=== PATIENT | male | born 1985 | race Caucasian/White ===

== ENCOUNTER 2019-12-08 15:14 | Outpatient (REF) | payer MEDICAID, SELFPAY ==
[2019-12-08 15:48] LABS: Prothrombin Time 24.2 SEC (10.8-13.0)
== END 2019-12-08 15:15 | disposition home or self-care (01) ==
LOC: HO.LABR 15:14
PROVIDERS: Visit Provider Pharmacist
DX: I21.A9 Other myocardial infarction type (principal)
CPT/HCPCS: 36415; 85610

== ENCOUNTER 2020-01-30 10:09 | Outpatient (REF) | payer MEDICAID, SELFPAY ==
[2020-01-30 11:35] LABS: INTERNATIONAL NORM RATIO 3.9 (0.9-1.1); Prothrombin Time 46.8 SEC (10.8-13.0)
== END 2020-01-30 10:10 | disposition home or self-care (01) ==
LOC: HO.LABR 10:09
PROVIDERS: PCP Nurse Practitioner Primary Care; Visit Provider Pharmacist
DX: I21.9 Acute myocardial infarction, unspecified (principal)
CPT/HCPCS: 36415; 85610

== ENCOUNTER 2021-12-17 16:04 | Outpatient (REF) | payer MEDICARE, MEDICAID, SELFPAY ==
--- NOTE | ~2021-12-17 | XR_ITS ---
EXAMINATION: XR HAND, RIGHT CLINICAL INFORMATION: Right hand pain COMPARISON: None TECHNIQUE: PA, lateral, and oblique views of the right hand. FINDINGS: Bone alignment is normal. No fracture or dislocation is seen. There is periarticular osteopenia. There is question of erosive change and periosteal reaction at the base of the fifth metacarpal bone and radial side of the proximal phalanx at the second MCP joint. The joint spaces are otherwise normal. Soft tissues are normal. XR/XR hand RT min 3V IMPRESSION: Severe periarticular osteopenia. Question erosive changes and periosteal reaction at the base of the fifth metacarpal bone at the ulnar side of the fifth DETENTION joint and base of the second finger proximal phalanx at the radial side of the MCP joint. Inflammatory arthritis should be considered.
== END 2021-12-17 16:05 | disposition home or self-care (01) ==
LOC: HO.HOSX 16:04
PROVIDERS: Visit Provider Orthopaedic Surgery
DX: M79.641 Pain in right hand (principal)
CPT/HCPCS: 73130; 99202

== ENCOUNTER → 2022-01-21 13:49 | Outpatient (BNVA) | payer MEDICARE, MEDICAID, SELFPAY | PROVIDERS: PCP Nurse Practitioner Primary Care; Visit Provider Orthopaedic Surgery | DX: M25.649 Stiffness of unspecified hand, not elsewhere classified (principal); M85.841 Other specified disorders of bone density and structure, right hand; M85.842 Other specified disorders of bone density and structure, left hand | CPT/HCPCS: 99212 ==

== ENCOUNTER 2022-01-24 13:00 | Outpatient (RCR) | payer MEDICARE, MEDICAID, SELFPAY ==
--- NOTE | 2022-01-15 14:27 | MHC.OT.EP ---
[address] [phone] Occupational Therapy Plan of Care Date of Evaluation: 01/15/22 Diagnosis: HAND STIFFNESS Assessment: MR DANIEL REPORTS ABOUT A FOUR MONTH HISTORY OF R INDEX FINGER PAIN, SWELLING AND ROM LIMITATIONS. HE ALSO EXPRESSES PAIN AND STIFFNESS IN OTHER JOINTS WITHIN HIS BODY. IT WAS FOUND THAT HE HAS OSTEOPENIA IN BOTH HANDS. HE WOULD BENEFIT FROM ONGOING SKILLED OT TO ADDRESS R INDEX MCP AND PIP RANGE OF MOTION, EDEMA, JT PROTECTION, USE OF HEAT/COLD, Pt EDUCATION, FINE MOTOR COORDINATION AND IMPROVE INDEPENDENCE IN ADLs AND IADLs. A 43% LIMITATION IS REPORTED PER QUICK DASH ASSESSMENT. Frequency and Duration: The patient will be seen 2X/WEEK FOR 6 WEEKS Short Term Goals: IND HEP IND USE OF HEAT/ COLD, POSSIBLE HOME PARAFFIN UNIT IND PARTICIPATION IN FINE MOTOR TASKS/ ADL CLOSURE BOARD IND JT PROTECTION STRATEGIES, TRIAL USE OF GLOVES IN COLD WEATHER REPORT PAINFREE AT REST [employer] Operator Goals: R IRON PLASTIC BULLET MAKER 50 POUNDS R IF PIPj 5/90 DEGREES IND EDEMA MANAGEMENT QUICK DASH <20% REPORT <2/10 PAIN WITH PARTICIPATION IN IADLs, LIGHT LIFTING TASKS Treatment Plan: Therapeutic Exercise Therapeutic Activity Home Exercise Program Splinting Neuro Re-ed Patient Education Desensitization/Sensory Re-ed Edema Control ADL Training Ultrasound NMES Iontophoresis Paraffin Fluidotherapy MHP Cold Packs Joint Mobilization Soft Tissue Mobilization Kinesiotaping Other (see comments) Electronically Signed By: KATRIN CEDEÑO OTR/L Please Sign and return to therapist. Thank you once again for your referral.
--- NOTE | 2022-01-31 13:27 | MHC.OT.DC ---
[address] [phone] F: [phone] Occupational Therapy Discharge Note Provider: Yenny Rodriguez Diagnosis: HAND STIFFNESS Date of Evaluation: 01/15/22 Date of Discharge: 01/31/22 Treatments to Date: 3 Cancellations to Date: 1 No Shows to Date: 2 Discharge Status: Visit Non-compliance Discharge Summary: MR DANIEL PRESENTED TO OT WITH DOMINANT R HAND, INDEX FINGER LIMITATIONS. HE WAS PROVIDED WITH A HEP, Pt EDUCATION AND EDEMA MANAGEMENT STRATEGIES. UNFORTUNATELY, Pt IS TO BE DISCHARGED FROM OT DUE TO VISIT NON COMPLIANCE AND THE [facility] ATTENDANCE POLICY. Electronically Signed By: DAMARIS REDDY/Yolanda Reviewed/agree with student documentation: N/A Therapist: Please Sign and return to therapist, thank you for your referral.
== END 2022-01-31 13:35 | disposition home or self-care (01) ==
LOC: HO.OT 13:00
PROVIDERS: PCP Nurse Practitioner Primary Care; Visit Provider Orthopaedic Surgery
DX: M85.841 Other specified disorders of bone density and structure, right hand (principal); M85.842 Other specified disorders of bone density and structure, left hand; M25.641 Stiffness of right hand, not elsewhere classified; M25.642 Stiffness of left hand, not elsewhere classified
CPT/HCPCS: 97110; 97140; 97166

== ENCOUNTER → 2022-03-04 15:08 | Outpatient (BNVA) | payer MEDICARE, MEDICAID, SELFPAY | PROVIDERS: PCP Nurse Practitioner Primary Care; Visit Provider Orthopaedic Surgery | DX: M25.649 Stiffness of unspecified hand, not elsewhere classified (principal); M85.841 Other specified disorders of bone density and structure, right hand; M85.842 Other specified disorders of bone density and structure, left hand | CPT/HCPCS: 99212 ==

== ENCOUNTER → 2022-05-20 14:39 | Outpatient (BNVA) | payer MEDICARE, MEDICAID, SELFPAY | PROVIDERS: PCP Nurse Practitioner Primary Care; Visit Provider Physician Assistant | DX: M25.649 Stiffness of unspecified hand, not elsewhere classified (principal); M85.841 Other specified disorders of bone density and structure, right hand; M85.842 Other specified disorders of bone density and structure, left hand | CPT/HCPCS: 99212 ==

== ENCOUNTER → 2022-07-02 14:41 | Outpatient (BNVA) | payer MEDICARE, MEDICAID, SELFPAY | PROVIDERS: PCP Nurse Practitioner Primary Care; Visit Provider Orthopaedic Surgery | DX: M85.841 Other specified disorders of bone density and structure, right hand (principal); M25.649 Stiffness of unspecified hand, not elsewhere classified | CPT/HCPCS: 99212 ==

== ENCOUNTER 2022-08-13 15:00 | Outpatient (RCR) | payer MEDICARE, OTHER, MEDICAID, SELFPAY ==
--- NOTE | 2022-06-09 15:46 | MHC.OT.EP ---
[address] [phone] Occupational Therapy Plan of Care Patient Name: Wilfrido Daniel Date of Evaluation: 06/09/22 Diagnosis: OSTEOPENIA OF BOTH HANDS Pain Location: R D2 PIPj AND MCPj 1/10 AT REST 3/10 WITH GRIPPING R D5 MCPj 0/10 AT REST 2-3/10 WITH GRIPPING L WRIST RADIAL AND ULNAR WRIST 3-4/10 WITH UD Pain Score: 0-3/10 Pain Scale Used: Numeric (0 - 10) Aggravating Factors: GRIPPING, LIFTING ITEMS >8 POUNDS Alleviating Factors: WARM SHOWERS Assessment: MR DANIEL RETURNS TO OT WITH ONGOING R IF PAIN AND ROM LIMITATIONS. HE ALSO STATES OCCASIONAL B/L WRIST PAIN. HE WAS PREVIOUSLY ATTENDING OUTPATIENT OT IN 2021 YET WAS DISCHARGED DUE TO THE CORE ATTENDANCE POLICY - TRANSPORTATION ISSUES. HE REPORTS ONGOING LIMITATIONS WITH ADLs AND IADLs, PARTICULARLY WITH HEAVY LIFTING. HE HAS MADE MODIFICATIONS TO MAINTAIN INDEPENDENCE AND QOL. A 30% LIMITATION IS REPORTED PER THE QUICK DASH ASSESSMENT. ONGOING SKILLED OT IS WARRANTED TO ADDRESS THE AREAS MENTIONED BELOW. Frequency and Duration: The patient will be seen 2X/WEEK FOR 4 WEEKS Short Term Goals: IND HEP IND USE OF HEAT/ COLD, POSSIBLE HOME PARAFFIN UNIT IND PARTICIPATION IN FINE MOTOR TASKS/ ADL CLOSURE BOARD IND JT PROTECTION STRATEGIES REPORT PAINFREE AT REST R IF PIPj 30 EXTENSION ACHIEVE R IF TIP TO [facility] Goals: R IF PIPj 20/100 DEGREES IND EDEMA MANAGEMENT QUICK DASH <15% REPORT <2/10 PAIN WITH PARTICIPATION IN IADLs, LIGHT LIFTING TASKS Treatment Plan: Therapeutic Exercise Therapeutic Activity Home Exercise Program Splinting Neuro Re-ed Patient Education Desensitization/Sensory Re-ed Edema Control ADL Training Ultrasound NMES Iontophoresis Paraffin Fluidotherapy MHP Cold Packs Joint Mobilization Soft Tissue Mobilization Kinesiotaping Other (see comments) Electronically Signed By: KATRIN CEDEÑO OTR/L Please Sign and return to therapist. Thank you once again for your referral.
--- NOTE | 2022-07-02 14:49 | MHC.OT.OP ---
[address] [phone] F: [phone] Occupational Therapy Progress Note Patient Name: Wilfrido Daniel Diagnosis: OSTEOPENIA OF BOTH HANDS Date of Evaluation: 06/09/22 Treatments to Date: 4 Cancellations to Date: 1 No Shows to Date: 0 Subjective: I HAVE AN APPOINTMENT ACROSS THE STREET AFTER THIS Pain Score: 2 Pain Location: R IF PIPj Objective Measures: R IF (POST TREATMENT) DIPj: 0/18 PIPj: 20/104 MCP: 0/88 R GROSS GRASP 48 POUNDS CIRCUMFERENCE OF PIPj OF R IF: 7.1 CM Status: Progressing Assessment: MR DANIEL HAS BEEN PROVIDED WITH A RMO FOR HIS RIGHT HAND FOR USE DURING THE DAY, WELL A NIGHT EXTENSION SPLINT. HIS ROM IS IMPROVING AFTER HEAT AND STRETCH. HE STATES HE IS MOSTLY PAINFREE AT REST AND MILD PAIN WITH FUNCTIONAL USE, INCLUDING LIFTING/ CARRYING DURING IADLs. HE WOULD CONT TO BENEFIT FROM ONGOING OT TO ADDRESS AREAS MENTIONED BELOW. Short Term Goals: IND HEP IND USE OF HEAT/ COLD, POSSIBLE HOME PARAFFIN UNIT IND PARTICIPATION IN FINE MOTOR TASKS/ ADL CLOSURE BOARD IND JT PROTECTION STRATEGIES REPORT PAINFREE AT REST (MET) R IF PIPj 30 EXTENSION (MET) ACHIEVE R IF TIP TO [facility] Goals: R IF PIPj 20/100 DEGREES IND EDEMA MANAGEMENT QUICK DASH <15% REPORT <2/10 PAIN WITH PARTICIPATION IN IADLs, LIGHT LIFTING TASKS Frequency and Duration: The patient will be seen 2X/WEEK FOR 4 WEEKS Treatment Plan: Therapeutic Exercise Therapeutic Activity Home Exercise Program Splinting Neuro Re-ed Patient Education Desensitization/Sensory Re-ed Edema Control ADL Training Ultrasound NMES Iontophoresis Paraffin Fluidotherapy MHP Cold Packs Joint Mobilization Soft Tissue Mobilization Kinesiotaping Other (see comments) Electronically Signed By: KATRNI CEDEÑO OTR/L Reviewed/agree with student documentation: N/A Therapist:
--- NOTE | 2022-08-22 11:42 | MHC.OT.DC ---
[address] [phone] F: [phone] Occupational Therapy Discharge Note Patient Name: Wilfrido Daniel Provider: Chanda Horvath Diagnosis: OSTEOPENIA OF BOTH HANDS Date of Evaluation: 06/09/22 Date of Discharge: 08/22/22 Treatments to Date: 6 Cancellations to Date: 1 No Shows to Date: 4 Discharge Status: Visit Non-compliance Discharge Summary: MR DANIEL WAS SEEN INCONSISTENTLY FOR OT SERVICES. HE WAS PROVIDED WITH A HEP AND NIGHT EXTENSION ORTHOSIS. HE EXPERIENCED DIFFICULTIES WITH BEING IND WITH HIS HEP, YET WITH REINFORECEMENT AND PRACTICE, WAS ABLE TO EXECUTE PROPERLY. DUE TO FOUR NO-SHOW APPOINTMENTS, Pt WILL BE DISCHARGED FROM OT SERVICES. Electronically Signed By: DAMARIS REDDY/Yolanda Reviewed/agree with student documentation: N/A Therapist: Please Sign and return to therapist, thank you for your referral.
== END 2022-08-22 11:40 | disposition home or self-care (01) ==
LOC: HO.OT 15:00
PROVIDERS: PCP Nurse Practitioner Primary Care; Visit Provider Physician Assistant
DX: M85.841 Other specified disorders of bone density and structure, right hand (principal); M85.842 Other specified disorders of bone density and structure, left hand
CPT/HCPCS: 29130; 97035; 97110; 97166; 97760

== ENCOUNTER 2022-09-03 14:33 | Outpatient (REF) | payer OTHER, SELFPAY ==
--- NOTE | ~2022-09-03 | MM_ITS ---
EXAMINATION: BONE DENSITOMETRY CLINICAL INDICATION: Osteoporosis. COMPARISON: This is the patient's baseline examination. TECHNIQUE: Using a [employer] DXA System (software version: 13.1) manufactured by [employer], dual-energy x-ray absorptiometry was performed of the lumbar spine and left hip. The images are of good technical quality. Based on ISCD (International Society for Clinical Densitometry) standards of reporting, Z-scores instead of T-scores are reported in this male patient younger than age 50. Summary results are attached. FINDINGS: AP SPINE L1-L4: BMD 0.924 g/cm2, T-score -2.5, Z-score -2.3, Z-score below expected range for age. LEFT FEMUR, NECK: BMD 1.734 g/cm2, T-score -2.6, Z-score -2.3, Z-score below expected range for age. LEFT FEMUR, TOTAL: BMD 0.743 g/cm2, T-score -2.5, Z-score -2.2, Z-score below expected range for age. IDENTIFIED RISK FACTORS: Osteoporosis, tobacco use (current smoker), alcohol (3 or 4 units per day). HISTORY OF FRACTURE: None listed. MEDICATIONS: Multivitamin. MM/XR DEXA axial skeleton IMPRESSION: 1. DIAGNOSIS: Based on the lowest Z-score value of -2.3 in the lumbar spine and femur neck, the patient's bone density is below the expected range for age. 2. 10-YEAR FRACTURE RISK PREDICTION, FRAX: Not performed in this patient outside the age range of 50-90 years. 3. Treatment Recommendations: NOF guidelines recommend consideration for treatment in postmenopausal women and men age 50 and older presenting with the following: -A hip or vertebral (clinical or morphometric) fracture. -T-score less than or equal to -2.5 at the femoral neck or spine after appropriate evaluation to exclude secondary causes. -Low bone mass at the hip or spine and a 10-year fracture probability by FRAX of greater than or equal to 3% for hip fracture or greater than or equal to 20% for major osteoporotic fracture based on the [place] adapted WHO algorithm. 4. Other Recommendations: All treatment decisions require clinical judgment and consideration of individual patient factors, including patient preferences, comorbidities, previous drug use, risk factors not captured in the FRAX model (e.g. frailty, falls, vitamin D deficiency, increased bone turnover, interval significant decline in bone density) and possible under or overestimation of fracture risk by FRAX. Additional medical evaluation for secondary cause of low bone mineral density may be appropriate. FUTURE SCAN RECOMMENDATION: People with diagnosed cases of osteoporosis or at high risk for fracture should have regular bone mineral density tests. For patients eligible for Medicare, routine testing is allowed once every 2 years. The testing frequency can be increased to one year for patients who have rapidly progressing disease, those who are receiving or discontinuing medical therapy to restore bone mass, or have additional risk factors.
== END 2022-09-03 14:34 | disposition home or self-care (01) ==
LOC: HO.MAMMO 14:33
PROVIDERS: PCP Nurse Practitioner Primary Care; Visit Provider Nurse Practitioner Primary Care
DX: Z13.820 Encounter for screening for osteoporosis (principal); M81.0 Age-related osteoporosis without current pathological fracture
CPT/HCPCS: 77080

== ENCOUNTER 2022-10-07 10:57 | Outpatient (REF) | payer OTHER, SELFPAY ==
[2022-10-09 20:34] LABS: TS Negative Control Passed; TS Panel A 0; TS Panel B 0; TS Positive Control Passed; TSpotTB Negative (Negative)
== END 2022-10-07 10:58 | disposition home or self-care (01) ==
LOC: HO.CHCLDS 10:57
PROVIDERS: Visit Provider Internal Medicine
DX: L73.2 Hidradenitis suppurativa (principal); R23.8 Other skin changes
CPT/HCPCS: 36415; 86481

== ENCOUNTER 2022-12-22 13:56 | Outpatient (REF) | payer OTHER, SELFPAY ==
[2022-12-22 16:05] LABS: Hematocrit 48.8 % (42.0-52.0); Hemoglobin 16.6 g/dl (14.0-18.0)
[2022-12-22 17:21] LABS: Iron 125 mcg/dL (45-160); Percent Iron Saturation 46 % (15-50); Total Iron Binding Capacity 273 mcg/dL (228-428); Unsaturated Iron Binding 148 ug/dL
[2022-12-22 17:41] LABS: Ferritin 187 ng/mL (20-250); TSH reflex Free T4 3.43 uIU/mL (0.32-4.0)
== END 2022-12-22 13:57 | disposition home or self-care (01) ==
LOC: HO.HHCL 13:56
PROVIDERS: Visit Provider Nurse Practitioner Primary Care
DX: E83.119 Hemochromatosis, unspecified (principal); R94.6 Abnormal results of thyroid function studies
CPT/HCPCS: 36415; 82728; 83540; 84443; 85014; 85018

== ENCOUNTER 2023-07-28 11:28 | Outpatient (REF) | payer OTHER, SELFPAY ==
[2023-07-28 14:49] LABS: Digoxin 1.2 ng/mL (0.8-2.0)
[2023-07-31 08:28] LABS: TS Negative Control Passed; TS Panel A 0; TS Panel B 0; TS Positive Control Passed; TSpotTB Negative (Negative)
== END 2023-07-28 11:29 | disposition home or self-care (01) ==
LOC: HO.CHCLDS 11:28
PROVIDERS: Visit Provider Internal Medicine
DX: R93.1 Abnormal findings on diagnostic imaging of heart and coronary circulation (principal); L70.0 Acne vulgaris
CPT/HCPCS: 36415; 80162; 86481

== ENCOUNTER 2023-08-14 12:02 | Emergency (ER) | payer OTHER, SELFPAY ==
[2023-08-14] VITALS (10 sets, daily range): BP systolic 88–97; BP diastolic 50–63; PULSE 86–110; RESP 16–25; TEMP 36.6; O2SAT 88–96; BMI 24.5
--- NOTE | 2023-08-14 | ECG_ITS ---
Test Reason : DYSPNEA Blood Pressure : / mmHG Vent. Rate : 104 BPM Atrial Rate : 104 BPM P-R Int : 148 ms QRS Dur : 110 ms QT Int : 318 ms P-R-T Axes : 042 005 167 degrees QTc Int : 418 ms Sinus tachycardia Biatrial enlargement Cannot rule out Inferior infarct (cited on or before 20-JUN-2019) Anterior infarct (cited on or before 20-JUN-2019) ST & T wave abnormality, consider lateral ischemia Abnormal ECG When compared with ECG of 20-JUN-2019 20:56, Questionable change in initial forces of Inferior leads Non-specific change in ST segment in Lateral leads Inverted T waves have replaced nonspecific T wave abnormality in Lateral leads Referred By: Jenny Thompson Electronically Signed By:ALEX SANTIAGO MD
--- NOTE | ~2023-08-14 | XR_ITS ---
EXAMINATION: XR CHEST CLINICAL INFORMATION: Cough and dyspnea COMPARISON: Previous chest x-ray and chest CTA from 2019 TECHNIQUE: Frontal view of the chest was obtained. FINDINGS: The cardiac silhouette is enlarged but stable. There is a left subclavian single chamber pacemaker/AICD with tip projecting over the right ventricle. The lung volumes are low. There is bilateral perihilar airspace disease. Difficult to exclude small left pleural effusion. No right pleural effusion. No pneumothorax. Bony structures are normal. XR/XR chest 1V IMPRESSION: Enlarged cardiac silhouette. Low lung volumes and bilateral perihilar airspace disease. Differential would include pulmonary edema and pneumonia.
[2023-08-14 12:20] LABS: MANUAL DIFF FLAG NO
[2023-08-14 12:24] LABS: Basophils Percent Auto 0.2 % (0-2); Eosinophils Percent Auto 0.1 % (0-4); Hematocrit 49.5 % (42.0-52.0); Hemoglobin 17.3 g/dl (14.0-18.0); Imm Gran Abs Auto 0.06 X10*3/uL (0.00-0.03); Imm Gran Pct Auto 0.5 % (0.0-0.4); Lymphocytes Absolute Auto 1.2 X10*3/uL (1.2-4.9); Lymphocytes Percent Auto 10.8 % (20-40); Mean Corpuscular HGB Conc 34.9 g/dl (31.0-36.0); Mean Corpuscular Hemoglobin 32.6 pg (27.0-33.0); Mean Corpuscular Volume 93.4 fL (80.0-98.0); Mean Platelet Volume 9.3 fL (9.4-12.4); Monocytes Absolute Auto 0.7 X10*3/uL (0.1-1.2); Monocytes Percent Auto 5.7 % (2-11); Neutrophils Absolute Auto 9.5 x10*3/uL (2.0-8.3); Neutrophils Percent Auto 82.7 % (45-73); Platelet Count 200 X10*3/uL (160-400); Red Cell Distribution Width 13.9 % (11.0-16.0); White Blood Count 11.5 X10*3/uL (4.8-10.8)
[2023-08-14 12:34] LABS: Alanine Aminotransferase 29 U/L (0-40); Albumin Level 3.7 g/dL (3.5-5.0); Alkaline Phosphatase 89 U/L (39-117); Anion Gap 14 (12-20); Aspartate Amino Transferase 41 U/L (5-37); Bilirubin Total 3.1 mg/dL (0.0-1.0); Blood Urea Nitrogen 7 mg/dL (9-16); Calcium 8.9 mg/dL (8.4-10.2); Carbon Dioxide 25 mmol/L (22-29); Chloride 98 mmol/L (96-108); Creatinine Clr Calc Pharmacy 109.9; Estimated Glomerular Filt Rate > 60; Glucose Random 117 mg/dL (60-115); Sodium 133 mmol/L (135-145); Total Protein 7.1 g/dL (6.5-8.0)
[2023-08-14 12:40] LABS: B Type Natriuretic Peptide 416 pg/mL (<100)
[2023-08-14 12:41] LABS: Troponin-I High Sensitivity 13.3 ng/L (<3.5-35.0)
--- NOTE | 2023-08-14 12:43 | PC.NURSE ---
pt biba from home d/t family member calling after he noticed pt was sob. upon EMS arrival - pt on 88% RA (pt's baseline) - pt then placed on 2L via NC w/ good effect - resting at 95%. sinus tachy on the playground monitor - HR between 105-115bpm. pt verbalizes sternal c/p that radiates to left side of ribcage. increase in pain when coughing. pt verbalizes intermittent sputum production but primarily dry cough. pt hypotensive on ED arrival. afebrile. pt verbalizes having a hx of heart failure. pt states noncompliant w meds x 4 days because he was stranded and did not have access to his medication. pt states he started retaking medication x 2 days ago and have felt off ever since. pt verbalizes feeling more sob while sitting up - states he becomes less dyspneic when he lays flat. pt repositioned to comfort. 20gIV placed in the right AC as well as in the left hand - labs obtained/sent to lab. ekg performed by tech. pt seen by ED provider/aware of plan of care moving forward. no sob/wob noted. respirations even/unlabored. plan of care ongoing. call fernandez placed within reach.
[2023-08-14 12:45] LABS: VBG Base Excess -0.8 mmol/L; VBG HCO3 22 mmol/L (22-26); VBG pCO2 33 mmHg; VBG pH 7.43 (7.32-7.43); VBG pO2 50 mmHg
[2023-08-14 12:46] LABS: Venous Blood Gas Refer to POC result
[2023-08-14 12:47] LABS: INTERNATIONAL NORM RATIO 1.3 (0.9-1.1); Prothrombin Time 15.3 SEC (11.1-13.3)
[2023-08-14 12:50] LABS: Partial Thromboplastin Time 29.8 SEC (26.0-36.8)
[2023-08-14 12:53] LABS: D Dimer High Sensitivity 588 NG/ML
[2023-08-14 12:57] LABS: Influenza A PCR NEGATIVE (Negative); Influenza B PCR NEGATIVE (Negative); Resp Syncy Virus RNA Qual PCR NEGATIVE (Negative); SARS COV2 PCR INHOUSE NEGATIVE (Negative)
[2023-08-14 12:57] LABS: Lactic Acid 1.9 mmol/L (0.5-2.0)
--- NOTE | 2023-08-14 13:06 | ED.SOB ---
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 He comes in with c/o not being compliant with medications and now short of breath with dry cough and found to be hypoxic by EMS 88% on RA - given 2L NC. He denies fevers, sputum. He states when he goes into heart failure he never has leg swelling. [facility] records 228pm EF 13% possible sarcoidosis cause looks like his baseline BPs run 90/60s and he has documented asymptomatic hypotension MD elicited complaint: shortness of breath Pertinent past history: congestive heart failure Onset (ago): day(s) (3) Context: medication noncompliance Timing: progressively worsening Severity: severe Exacerbating factors: lying flat, exertion and coughing Relieving factors: oxygen and upright position Known history of: congestive heart failure Associated symptoms: chest pain, cough and orthopnea Treatment prior to arrival: oxygen Related Data Home Medications ?Medication ?Instructions ?Recorded ?Confirmed apixaban 5 mg tablet (Eliquis) 5 mg PO BID 12/17/21 dapagliflozin propanediol 10 mg 10 mg PO DAILY 12/17/21 tablet (Farxiga) digoxin 125 mcg (0.125 mg) tablet 125 mcg PO DAILY 12/17/21 folic acid 1 mg tablet 1 mg PO DAILY 12/17/21 isotretinoin 40 mg capsule 40 mg PO BID 12/17/21 (Claravis) metoprolol succinate 100 mg 100 mg PO DAILY 12/17/21 tablet,extended release 24 hr sacubitril 49 mg-valsartan 51 mg 1 tab PO BID 12/17/21 tablet (Entresto) spironolactone 25 mg tablet 25 mg PO DAILY 12/17/21 thiamine HCl (vitamin B1) 100 mg 100 mg PO DAILY 12/17/21 tablet (Vitamin B-1) Previous Rx's ?Medication ?Instructions ?Recorded amoxicillin 875 mg-potassium 1 tab PO BID #14 tabs 08/14/23 clavulanate 125 mg tablet doxycycline hyclate 100 mg capsule 100 mg PO BID 7 days #14 caps 08/14/23 Allergies Allergy/AdvReac Type Severity Reaction Status Date / Time No Known Allergies Allergy Verified 08/14/23 12:07 [No Known Allergies*] Review of Systems Review of Systems: Constitutional : No Fever, No Chills ENT/Mouth : No sore throat, No Rhinorrhea, No Swallowing Difficulty Eyes: No Eye Pain, No Swelling, No Redness Cardiovascular : pos Chest Pain, positive SOB, pos Orthopnea, no Edema Respiratory : pos Cough, No Sputum, No Wheezing, positive dyspnea Gastrointestinal : No Nausea, No Vomiting, No Diarrhea, No abdominal Pain, No Hematochezia, No Melena Genitourinary : No Dysuria, No Urinary Frequency, No Hematuria Musculoskeletal : No joint pain, No Myalgias Skin : No Skin Lesions, No rash Neuro : No Weakness, No Numbness, No Dizziness, No Headache Psych : No Anxiety/Panic, No Depression All other systems reviewed and are negative [facility] Past Medical History Attestation statement: The following information was validated with the patient. Source: old records reviewed Medical History Osteopenia Alcohol use Heart failure Social History Social History (Updated 08/14/23 @ 13:23 by Jenny Thompson DO) Alcohol intake: current Patient Tobacco Use Status: Current everyday Tobacco user Advance Directives: No Advance Directives Information Provided: Yes Do you have a plan to hurt others: No Plan Current occupational status: disabled Current occupation: rt hand Physical Exam Vital Signs: Vital Signs: Last Vital Signs Temp 97.8 F 08/14/23 12:08 Pulse 103 H 08/14/23 15:10 Resp 16 08/14/23 15:10 BP 90/58 L 08/14/23 15:10 Pulse Ox 96 08/14/23 15:10 O2 Del Method Room Air 08/14/23 15:10 O2 Flow Rate 2 08/14/23 13:18 BMI result Body Mass Index 24.5 Appearance: Alert. Oriented X3. No acute distress. Eyes: Pupils equal, round and reactive to light. ENT: Pharynx normal. Neck: Normal inspection. Neck supple. CVS: Normal heart rate and rhythm. Pulses normal. Respiratory: No respiratory distress. Breath sounds rales in both bases noted Abdomen: Soft and non-tender. Skin: Skin warm and dry. Normal skin color. Extremities: No lower extremity edema. Neuro: Oriented X 3. No motor deficit. No sensory deficit. Course Course Course Narrative: at this time no peripheral edema, no JVD, BNP only 400 no sig edema on CXR could also be infectious will start on very gentle fluids and ceftriaxone. cardiology notified 155pm Reevaluation(s) Reevaluation #1: CRP up now states he wants to be full code Medications Administered Discontinued Medications Generic Name Dose Route Start Last Admin Trade Name Freq PRN Reason Stop Dose Admin Sodium Chloride 1,000 mls @ 999 mls/hr 08/14/23 13:44 08/14/23 14:57 Ns IV 08/14/23 14:44 Infused .Q1H1M ONE Infusion Albumin Human 100 mls @ 133.333 mls/hr 08/14/23 13:45 08/14/23 14:53 Kedbumin 25 % IV 08/14/23 15:29 133.33 mls/hr Q1H WALLY Administration Ceftriaxone Sodium 1 gm/ 50 mls @ 100 mls/hr 08/14/23 13:56 08/14/23 14:49 Sodium Chloride IV 08/14/23 14:25 Infused ONCE ONE Infusion Medical Decision Making Medical Decision Making [facility] Narrative: 37 yo male with PMH of cardiomyopathy EF 10%, apical thrombus on eliquis, ETOH and tobacco use here with c/o non compliance with medications and now feeling short of breath with orthopnea and dry cough. Low BP likely due to poor EF and low cardiac output not infection or severe sepsis. will obtain labs, CXR, obtain records from [facility] He denies GIB symptoms will consult cardiology Differential Diagnosis Differential Diagnoses: The differential diagnosis associated with the presentation includes pneumonia, CHF, dehydration, anemia Admission/Observation Consideration of admission/observation: Escalation of care including admission/observation considered planned to admit or transfer after talking to cardiology but patient refuses admission he is alert and oriented x 3 he is answering me appropriately I explained it is pneumonia vs CHF and he needs further workup or it could be something else he declines admisison and states he will return if he is worse. He has hx of noncompliance and follow up at [facility] Provider Management of the patient was discussed with: Customer Agent cardiology aware and notified Lab Data MDM Lab Attestation statement: I reviewed the patient's lab results. 08/14/23 12:14 08/14/23 12:14 Labs: Lab Results 08/14/23 08/14/23 08/14/23 Range/Units 12:13 12:14 12:28 WBC 11.5 H (4.8-10.8) X10*3/uL RBC 5.30 (4.60-5.80) X10*6/uL Hgb 17.3 (14.0-18.0) g/dl Hct 49.5 (42.0-52.0) % MCV 93.4 (80.0-98.0) fL MCH 32.6 (27.0-33.0) pg MCHC 34.9 (31.0-36.0) g/dl RDW 13.9 (11.0-16.0) % Plt Count 200 (160-400) X10*3/uL MPV 9.3 L (9.4-12.4) fL Immature Gran % (Auto) 0.5 H (0.0-0.4) % Neut % (Auto) 82.7 H (45-73) % Lymph % (Auto) 10.8 L (20-40) % [place] % (Auto) 5.7 (2-11) % Eos % (Auto) 0.1 (0-4) % Baso % (Auto) 0.2 (0-2) % Lymph # (Auto) 1.2 (1.2-4.9) X10*3/uL [place] # (Auto) 0.7 (0.1-1.2) X10*3/uL Eos # (Auto) 0.0 (0.0-0.4) X10*3/uL Baso # (Auto) 0.0 (0.0-0.2) X10*3/uL Abs Immat Gran (auto) 0.06 H (0.00-0.03) X10*3/uL Absolute Neuts (auto) 9.5 H (2.0-8.3) x10*3/uL Absolute Nucleated RBC 0.000 (0.0-0.012) X10*3/uL Nucleated RBC % (auto) 0.0 (0.0-0.2) /100WBC ESR 7 (0-15) MM/HR PT 15.3 H (11.1-13.3) SEC INR 1.3 H (0.9-1.1) APTT 29.8 (26.0-36.8) SEC D-Dimer High Sensitivty 588 NG/ML VBG pH (7.32-7.43) VBG pCO2 mmHg VBG pO2 mmHg VBG HCO3 (22-26) mmol/L VBG O2 Saturation % VBG Base Excess mmol/L Sodium 133 L (135-145) mmol/L Potassium 4.0 (3.3-5.1) mmol/L Chloride 98 (96-108) mmol/L Carbon Dioxide 25 (22-29) mmol/L Anion Gap 14 (12-20) BUN 7 L (9-16) mg/dL Creatinine 0.92 (0.5-1.4) mg/dL Estim Creat Clear Calc 109.9 Estimated GFR > 60 Random Glucose 117 H (60-115) mg/dL Lactic Acid 1.9 (0.5-2.0) mmol/L Calcium 8.9 (8.4-10.2) mg/dL Total Bilirubin 3.1 H (0.0-1.0) mg/dL AST 41 H (5-37) U/L ALT 29 (0-40) U/L Alkaline Phosphatase 89 (39-117) U/L Troponin I High Sens 13.3 (<3.5-35.0) ng/L C-Reactive Protein 21.78 H (< or = 0.50) mg/dL B-Natriuretic Peptide 416 H (<100) pg/mL Total Protein 7.1 (6.5-8.0) g/dL Albumin 3.7 (3.5-5.0) g/dL Influenza Type A (PCR) NEGATIVE (Negative) Influenza Type B (PCR) NEGATIVE (Negative) RSV RNA Qual (PCR) NEGATIVE (Negative) SARS-CoV-2 RNA (RT-PCR) NEGATIVE (Negative) 08/14/23 Range/Units 12:35 WBC (4.8-10.8) X10*3/uL RBC (4.60-5.80) X10*6/uL Hgb (14.0-18.0) g/dl Hct (42.0-52.0) % MCV (80.0-98.0) fL MCH (27.0-33.0) pg MCHC (31.0-36.0) g/dl RDW (11.0-16.0) % Plt Count (160-400) X10*3/uL MPV (9.4-12.4) fL Immature Gran % (Auto) (0.0-0.4) % Neut % (Auto) (45-73) % Lymph % (Auto) (20-40) % [place] % (Auto) (2-11) % Eos % (Auto) (0-4) % Baso % (Auto) (0-2) % Lymph # (Auto) (1.2-4.9) X10*3/uL [place] # (Auto) (0.1-1.2) X10*3/uL Eos # (Auto) (0.0-0.4) X10*3/uL Baso # (Auto) (0.0-0.2) X10*3/uL Abs Immat Gran (auto) (0.00-0.03) X10*3/uL Absolute Neuts (auto) (2.0-8.3) x10*3/uL Absolute Nucleated RBC (0.0-0.012) X10*3/uL Nucleated RBC % (auto) (0.0-0.2) /100WBC ESR (0-15) MM/HR PT (11.1-13.3) SEC INR (0.9-1.1) APTT (26.0-36.8) SEC D-Dimer High Sensitivty NG/ML VBG pH 7.43 (7.32-7.43) VBG pCO2 33 mmHg VBG pO2 50 mmHg VBG HCO3 22 (22-26) mmol/L VBG O2 Saturation 76.0 % VBG Base Excess -0.8 mmol/L Sodium (135-145) mmol/L Potassium (3.3-5.1) mmol/L Chloride (96-108) mmol/L Carbon Dioxide (22-29) mmol/L Anion Gap (12-20) BUN (9-16) mg/dL Creatinine (0.5-1.4) mg/dL Estim Creat Clear Calc Estimated GFR Random Glucose (60-115) mg/dL Lactic Acid (0.5-2.0) mmol/L Calcium (8.4-10.2) mg/dL Total Bilirubin (0.0-1.0) mg/dL AST (5-37) U/L ALT (0-40) U/L Alkaline Phosphatase (39-117) U/L Troponin I High Sens (<3.5-35.0) ng/L C-Reactive Protein (< or = 0.50) mg/dL B-Natriuretic Peptide (<100) pg/mL Total Protein (6.5-8.0) g/dL Albumin (3.5-5.0) g/dL Influenza Type A (PCR) (Negative) Influenza Type B (PCR) (Negative) RSV RNA Qual (PCR) (Negative) SARS-CoV-2 RNA (RT-PCR) (Negative) Independent Interpretation I performed an independent interpretation of an: EKG and Plain X-Ray (edema vs CHF) Interpretation: Rate: 104 Rhythm: sinus tach Tyler: normal , LVH Normal P waves. Normal GIUSEPPE. Normal QRS complex. ST T wave : inverted t waves I and aVL, V5-V6, no JESSIE, poor R wave progression qTC: 418 prior studies: change from 2020 The study has been interpreted contemporaneously by me. . Radiology Impression Discussion of test interpretation with radiology: I have reviewed the radiologist's reading. External Record Review External record reviewed: Outpatient record Prescription Management I considered prescription management with: Antibiotic Discharge Plan Discharge Clinical Impression: Shortness of breath Patient Disposition: Left Against Medical Advice Instructions: Against Medical Advice (ED), Shortness of Breath (ED) Additional Instructions: it is unclear if this is CHF, pneumonia or some other issue your blood pressure was low you can return for any worsening symptoms or concerns you were offered admission but refused. Prescriptions: New doxycycline hyclate 100 mg capsule 100 mg PO BID 7 Days Qty: 14 0RF amoxicillin-pot clavulanate 875-125 mg tablet 1 tab PO BID Qty: 14 0RF No Action spironolactone 25 mg tablet 25 mg PO DAILY folic acid 1 mg tablet 1 mg PO DAILY thiamine HCl (vitamin B1) [Vitamin B-1] 100 mg tablet 100 mg PO DAILY metoprolol succinate 100 mg tablet extended release 24 hr 100 mg PO DAILY Eliquis 5 mg tablet 5 mg PO BID digoxin 125 mcg (0.125 mg) tablet 125 mcg PO DAILY Farxiga 10 mg tablet 10 mg PO DAILY isotretinoin [Claravis] 40 mg capsule 40 mg PO BID Entresto 49-51 mg tablet 1 tab PO BID Print Language: Greek Sepsis Bolus Exclusion Sepsis Bolus Exclusion CHF/Renal Failure This patient met severe sepsis criteria due to the following condition(s):: Hypotension In my clinical judgement the administration of 30 ml/kg of crystalloid would be detrimental to this patient due to the patient's following conditions:: NYHA class III or IV Heart Failure(symptoms with low exertion or rest) Replace the 30 mls/kg with (Zero amount not acceptable and all fluids for severe sepsis must be given at GREATER than 125 mls/hr) Crystalloids amount given in mls: (rate must be at least 150cc/hr): 250 Colloids amount given in mls:: 200
[2023-08-14] MEDS: 0.9 % Sodium Chloride 1,000 ML 999 ML IV (13:52)
[2023-08-14] MEDS: Albumin Human 25 % 100 ML 133.33 ML IV ×2 (13:52→14:53)
--- NOTE | 2023-08-14 13:56 | PC.NURSE ---
pt taken off of 2L via NC - resting at 94% in no apparent distress. pt positioned upright. no sob/wob noted. respirations even/unlabored. IVF/medication administered per provider order. plan of care ongoing.
[2023-08-14] MEDS: cefTRIAXone sodium 1 GM in 0.9 % Sodium Chloride 50 ML IV (14:11)
[2023-08-14 14:16] LABS: C Reactive Protein 21.78 mg/dL (< or = 0.50)
[2023-08-14 14:51] LABS: Erythrocyte Sedimentation Rate 7 MM/HR (0-15)
--- NOTE | 2023-08-14 14:57 | PC.NURSE ---
1st bag of albumin done at this time. pt remains hypotensive. 2nd bag infusing at this time. effectiveness pending. respirations remain even/unlabored. call fernandez placed within reach.
--- NOTE | 2023-08-14 16:31 | PC.NURSE ---
pt reporting he does not want to be admitted. this RN as well as Dr. Thompson spoke w/ pt in regards to importance of staying to be treated. pt still refused. signed AMA form/left facility.
== END 2023-08-14 16:33 | disposition left against medical advice (07) ==
PROVIDERS: Emergency Provider Emergency Medicine; PCP Nurse Practitioner Primary Care
DX: R06.02 Shortness of breath (principal); R05.9 Cough, unspecified; M54.2 Cervicalgia; R00.0 Tachycardia, unspecified; I50.9 Heart failure, unspecified; F17.210 Nicotine dependence, cigarettes, uncomplicated; Z03.818 Encounter for observation for suspected exposure to other biological agents ruled out; Z79.01 Long term (current) use of anticoagulants; Z79.899 Other long term (current) drug therapy; Z91.148 Patient's other noncompliance with medication regimen for other reason
CPT/HCPCS: 0241U; 36415; 71045; 80053; 82803; 83605; 83880; 84484; 85025; 85379; 85610; 85652; 85730; 86140; 87040; 93005; 96365; 96366; 99284; J0696; P9047

== ENCOUNTER → 2023-08-14 12:05 | Outpatient (BNV) | payer OTHER, SELFPAY | PROVIDERS: Emergency Provider Emergency Medicine; PCP Nurse Practitioner Primary Care; Visit Provider Internal Medicine Cardiovascular Disease | DX: R94.31 Abnormal electrocardiogram [ECG] [EKG] (principal) | CPT/HCPCS: 93010 ==

== ENCOUNTER 2023-08-15 14:27 | Emergency (ER) | payer OTHER, SELFPAY ==
[2023-08-15 14:34] VITALS: BP 111/71; BP 112/60; PULSE 107; PULSE 112; RESP 16; TEMP 36.8; O2SAT 96; O2SAT 99; BMI 24.7
--- NOTE | 2023-08-15 14:45 | ECG_ITS ---
Test Reason : SOB Blood Pressure : / mmHG Vent. Rate : 105 BPM Atrial Rate : 105 BPM P-R Int : 148 ms QRS Dur : 110 ms QT Int : 330 ms P-R-T Axes : 042 -03 139 degrees QTc Int : 436 ms Sinus tachycardia Right atrial enlargement Cannot rule out Inferior infarct (cited on or before 20-JUN-2019) Anterior infarct (cited on or before 20-JUN-2019) ST & T wave abnormality, consider lateral ischemia Abnormal ECG When compared with ECG of 14-AUG-2023 12:05, No significant change was found Referred By: Generic ED Physician Electronically Signed By:ALEX SANTIAGO MD
[2023-08-15 15:15] LABS: MANUAL DIFF FLAG NO
[2023-08-15 15:16] LABS: Basophils Percent Auto 0.4 % (0-2); Eosinophils Percent Auto 0.4 % (0-4); Hematocrit 46.6 % (42.0-52.0); Hemoglobin 16.3 g/dl (14.0-18.0); Imm Gran Abs Auto 0.05 X10*3/uL (0.00-0.03); Imm Gran Pct Auto 0.4 % (0.0-0.4); Lymphocytes Absolute Auto 1.2 X10*3/uL (1.2-4.9); Lymphocytes Percent Auto 10.6 % (20-40); Mean Corpuscular Hemoglobin 32.8 pg (27.0-33.0); Mean Corpuscular Volume 93.8 fL (80.0-98.0); Mean Platelet Volume 9.2 fL (9.4-12.4); Monocytes Absolute Auto 0.6 X10*3/uL (0.1-1.2); Monocytes Percent Auto 5.2 % (2-11); Neutrophils Absolute Auto 9.3 x10*3/uL (2.0-8.3); Platelet Count 230 X10*3/uL (160-400); Red Blood Count 4.97 X10*6/uL (4.60-5.80); Red Cell Distribution Width 13.8 % (11.0-16.0); White Blood Count 11.2 X10*3/uL (4.8-10.8)
[2023-08-15 15:25] VITALS: PULSE 107
[2023-08-15 15:30] LABS: Ethanol < 10 mg/dL
[2023-08-15 15:35] LABS: Alanine Aminotransferase 73 U/L (0-40); Alanine Aminotransferase 74 U/L (0-40); Albumin Level 4.1 g/dL (3.5-5.0); Alkaline Phosphatase 128 U/L (39-117); Alkaline Phosphatase 129 U/L (39-117); Anion Gap 18 (12-20); Aspartate Amino Transferase 110 U/L (5-37); Aspartate Amino Transferase 118 U/L (5-37); Bilirubin Direct 2.8 mg/dL (0.0-0.5); Bilirubin Total 5.1 mg/dL (0.0-1.0); Bilirubin Total 5.3 mg/dL (0.0-1.0); Blood Urea Nitrogen 8 mg/dL (9-16); Calcium 9.6 mg/dL (8.4-10.2); Carbon Dioxide 20 mmol/L (22-29); Chloride 100 mmol/L (96-108); Creatinine Clr Calc Pharmacy 136.6; Estimated Glomerular Filt Rate > 60; Glucose Random 104 mg/dL (60-115); Potassium 4.2 mmol/L (3.3-5.1); Sodium 134 mmol/L (135-145); Total Protein 7.3 g/dL (6.5-8.0); Total Protein 7.6 g/dL (6.5-8.0)
[2023-08-15 16:38] VITALS: BP 94/53; PULSE 95; RESP 36; TEMP 36.8; O2SAT 94
[2023-08-15 18:24] VITALS: BP 90/61; PULSE 101; RESP 35; TEMP 36.7; O2SAT 94
--- NOTE | 2023-08-15 19:14 | PC.NURSE ---
PT requesting to leave, educated on importance of stating however wait is too long and I want to go home. Pt reports will call doctor in am and will return if worse IV pulled before leaving, no provier had sign up for him
== END 2023-08-15 19:16 | disposition left against medical advice (07) ==
PROVIDERS: Emergency Provider Emergency Medicine; PCP Nurse Practitioner Primary Care
DX: R06.02 Shortness of breath (principal); R04.2 Hemoptysis; Z53.21 Procedure and treatment not carried out due to patient leaving prior to being seen by health care provider
CPT/HCPCS: 36415; 80053; 80076; 80307; 82248; 85025; 93005; 99281; 99284

== ENCOUNTER → 2023-08-15 14:45 | Outpatient (BNV) | payer OTHER, SELFPAY | PROVIDERS: Emergency Provider Emergency Medicine; PCP Nurse Practitioner Primary Care; Visit Provider Internal Medicine Cardiovascular Disease | DX: R94.31 Abnormal electrocardiogram [ECG] [EKG] (principal) | CPT/HCPCS: 93010 ==

== ENCOUNTER 2023-09-23 11:57 | Outpatient (REF) | payer OTHER, SELFPAY ==
[2023-09-23 14:17] LABS: Alanine Aminotransferase 20 U/L (0-40); Albumin Level 4.2 g/dL (3.5-5.0); Alkaline Phosphatase 71 U/L (39-117); Aspartate Amino Transferase 23 U/L (5-37); Bilirubin Direct 0.4 mg/dL (0.0-0.5); Total Protein 7.5 g/dL (6.5-8.0)
== END 2023-09-23 11:58 | disposition home or self-care (01) ==
LOC: HO.HHCL 11:57
PROVIDERS: Visit Provider Nurse Practitioner Primary Care
DX: R79.89 Other specified abnormal findings of blood chemistry (principal)
CPT/HCPCS: 36415; 80076

== ENCOUNTER 2023-09-24 14:56 | Outpatient (REF) | payer OTHER, SELFPAY ==
[2023-09-24 16:39] LABS: Anion Gap 11 (12-20); Blood Urea Nitrogen 6 mg/dL (9-16); Calcium 10.1 mg/dL (8.4-10.2); Carbon Dioxide 26 mmol/L (22-29); Chloride 104 mmol/L (96-108); Estimated Glomerular Filt Rate > 60; Glucose Random 104 mg/dL (60-115); Potassium 4.4 mmol/L (3.3-5.1); Sodium 137 mmol/L (135-145)
[2023-09-24 17:05] LABS: B Type Natriuretic Peptide 1304 pg/mL (<100)
== END 2023-09-24 14:57 | disposition home or self-care (01) ==
LOC: HO.HHCL 14:56
PROVIDERS: Visit Provider Nurse Practitioner Primary Care
DX: I50.22 Chronic systolic (congestive) heart failure (principal); N18.2 Chronic kidney disease, stage 2 (mild); M54.50 Low back pain, unspecified
CPT/HCPCS: 36415; 80048; 83880

== ENCOUNTER 2024-03-08 12:39 | Outpatient (REF) | payer OTHER, SELFPAY ==
[2024-03-09 08:41] LABS: ~HepC Num1 0.07 S/CO (0.00-0.79); ~Hepatitis B Surface Antibody REACTIVE (Nonreactive); ~Hepatitis C Antibody Nonreactive (Nonreactive)
== END 2024-03-08 12:40 | disposition home or self-care (01) ==
LOC: HO.LAB 12:39
PROVIDERS: Absent Provider Internal Medicine; PCP Nurse Practitioner Primary Care; Visit Provider Nurse Practitioner Primary Care
DX: L70.0 Acne vulgaris (principal)
CPT/HCPCS: 36415; 86706; 86803

== ENCOUNTER 2024-10-21 11:59 | Outpatient (REF) | payer OTHER, SELFPAY ==
--- OUTSIDE RECORDS SUMMARY | 2024-10-21 12:41 | XMS_ITS | Encounter Summary ---
Author Organization [employer] Address [address] [place] [address] [address] Prov[address] Care Court Deputy Name Role Phone Lucy Caldwell Primary Care Provider [phone] Encounter Details Date Type Department Care Team ([facility] st Contact Info) Description 02/25/2022 Orders Only [facility] [address] [place] [address] Keyanna Askew MD [address] [place] [address] Cystic acne (Primary Dx) Social History Tobacco Use Types Packs/Day Years Used Date Smoking Tobacco: Never Assessed Sex and Gender Information Value Date Recorded Sex Assigned at Male 12/16/2021 10:14 AM EDT Legal Sex Male 10:14 AM EDT Gender Identity Male 12/16/2021 10:14 AM EDT Sexual Orientation Straight 12/16/2021 10 :14 AM EDT documented as of this encounter Plan of Treatment Not on file documented as of this encounter Visit Diagnoses Diagnosis Cystic acne- Primary Other acne documented in this encounter Care Teams Court Deputy Relationship Specialty Start Date End Date Lucy Caldwell ANP [address] [place] [address] PCP - General Family Medicine 06/28/19 documented as of this encounter
--- OUTSIDE RECORDS SUMMARY | 2024-10-21 12:41 | XMS_ITS | Clinical Summary ---
Author Organization [employer] Address [address] [facility] 7t [place] [address] Care Team Providers Care Optimization Manager Name Role Phone Lucy Caldwell ANUSHKA Primary Care Provider [phone] Allergies Active Allergy Reactions Criticality Noted Date Comments Red Dye #40 (Allura Red) Other 08/08/2022 Medication interaction Medications * This document contains information received from the source organization and may not represent a complete record from that organization. apixaban (Eliquis) 5 MG tablet take 1 tablet by oral route 2 times every day Active spironolacton e (Aldactone) 25 MG tablet take 1 tablet by oral route every day Active metoprolol succinate XL (Toprol-XL) 100 MG 24 hr tablet Take 1 tablet by mouth. 12/04/19 22 Active digoxin (Lanoxin) 250 MCG tab;et Take 250 mcg by mouth in the morning. Dr. Ford 05/29/19 23 Active Entresto 97-103 MG tablet Take 1 tablet by mouth [address] Ford 05/29/19 23 Active Alcohol Swabs pads 1 each 4 times daily. Use as directed 100 each 08/26/19 23 Active Misc. Devices (Pulse Oximeter) miscIndicatio ns:Chronic systolic heart failure (CMS/HCC) Use to check SpO2, if < 92%, recheck and if still low, call 911 or go to ER 1 each 08/26/19 24 Active Cosentyx Sensoready, 300 MG, 150 MG/ML solution auto-injector Indications:P soriatic arthritis (CMS/HCC) INJECT 2 ML (300 MG) SUBCUTANEOUSLY EVERY 30 DAYS. 2 mL 12/21/19 24 Active varenicline (Chantix) 1 MG tablet TAKE 1 TABLET BY MOUTH TWICE DAILY IN THE MORNING AND IN THE EVENING WITH FOOD 60 tablet 05/13/19 25 Active folic acid (Folvite) 1 MG tablet TAKE 1 TABLET BY MOUTH EVERY MORNING 90 tablet 1 07/06/19 25 Active Multiple Vitamin (Multivitamin ) tablet TAKE 1 TABLET BY MOUTH EVERY MORNING 90 tablet 1 07/06/19 25 Active D3-1000 25 MCG (1000 UT) capsuleIndica tions:Osteope sumanth of neck of left femur,Low vitamin D level TAKE 1 CAPSULE BY MOUTH EVERY MORNING 90 capsule 1 07/06/19 25 Active thiamine (Vitamin B-1) 100 MG tablet TAKE 1 TABLET BY MOUTH EVERY MORNING 90 tablet 2 10/07/19 25 Active thiamine (Vitamin B-1) 100 MG tablet Take 1 tablet (100 mg) by mouth in the morning. 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 Ford or Dr. Taylor His goal is to be able to go on a hike. Have reviewed many times etoh and smoking in opposition to this goal, even if he doesn't want a heart transplant. He does understand. Dx'd at 34yo[address]. Did not go to heart transplant appt in June [address] Taylor at [facility]. Has had appt w/ [facility], test kit was sent to [facility]. No result in chart. He has SOB walking 2 blocks, worse up hill, difficulty w/ ADLs. Wilfrido has poor insight or apathy/depression though negative PHQ. For example, Doesn't want heart transplant if offered b/c he feels he will drink and smoke again afterwards and so it should go to someone else . He expresses interest in changing his behavior, but has great difficulty to take action in this regard. Denies SI. Declined BH multiple times. MOLST and HCP forms given to review 08/18/23. Pt is to cont plan per cardiology and [facility] specialists. Urged to please f/u with [facility] and local ([facility]) specialists. Will request updated [facility] notes. Continue daily weights, BP checks, walking as much as tolerated, smoking cessation and etoh reduction encouraged. MEDS: Entresto 97-103mg BID, metoprolol succ 100mg QD, digoxin 0.250mg QD, shantanu 25mg QD, (had also been on dapagliflozin 10mg QD, torsemide 20mg QD) Eliquis 5mg BID (intracardiac thrombus) Specialists: Dr. Taylor at [facility]; [facility] Cardiology Dr. Ford -diagnosed w/ advanced heart failure and dilated cardiomyopathy (LVEF 10%) in June 2019, started on neurohormonal antagonists and developed hypotension/cardiogenic shock. Echo revealed LVEF 10-15%, apical thrombus, cardiac PET consistent w/ active sarcoid. He was started on prednisone 40mg daily, then 30mg QD. 10/2020 primary prevention ICD implanted. 12/2020 he underwent diagnostic right and left heart catheterization which revealed RA 1, PA 05/10/13, PCWP 6, estimated [place]/CI 5.15/2.70, and no significant coronary artery disease. NYHA functional class IIIB BNP 416 07/2023, 1673 04/2021, 2784 06/2019 Epidermoid cyst 10/31/2015 Hidradenitis 09/11/2011 Encounters Date Type Department Care Team Description 10/06/2024 Refill [facility] [address] [place] [address] Lucy Caldwell ANP 09/02/2024 Telephone [facility] [address] [place] [address] Lucy Caldwell ANP Referral 09/02/2024 Telephone [facility] [address] [place] [address] Lucy Caldwell ANP Chart Prep 08/29/2024 Patient Outreach [facility] [address] [place] [address] Lucy Caldwell ANP Pre-visit Planning ([facility] unable to reach M ) from Last 3 Months Immunizations Immunization Administration Dates Next Due DTP 12/29/1989, 8,05/17/1986,1986,01/16/1986 Hep B, Adolescent or Pediatric 01/18/1997,1996,06/30/1996 Hep B, adult 11/09/2015 Hib ([facility]) 11/20/1987,11/17/1987 IPV 12/29/1989, 8,03/19/1986,1985 Influenza, IIV3, injectable 11/12/2010, 8 MMR 04/02/1996,01/10/1987 TD (adult), 2 Lf tetanus tox oid, preservative free, adsorbed 12/22/2022,01/30/1999 Td (adult), 5 Lf tetanus tox oid, preservative free, adsorbed 04/01/2012 Tdap 02/21/2011 Social History Tobacco Use Types Packs/Day Years Used Date Smoking Tobacco: Every Day Cigarettes 1 15 Smokeless Tobacco: Never Tobacco Cessation:Ready to Q uit: Not Asked; Counseling Given: Not Answered Alcohol Use Standard Drinks/Week Comments Yes 0 (1 standard drink = 0.6 oz pur e alcohol) Depression Answer Date Recorded Patient Health Questionnaire-9 Score 5 08/18/2023 Patient Health Questionnaire-9 Score 5 08/18/2023 Last PHQ-9: Questionnaire Data Not on file 0 08/18/2023 Housing Stability Answer Date Recorded What is your housing situation today? I have catherine corrigan 08/10/[address] you li ve. Do you have problems with any of the following? None of the above 08/10/2023 Food Insecurity Answer Date Recorded Within the past 12 months, y ou worried that your food would run out before you got money to buy more: Never True 08/10/2023 Within the past 12 months,th e food you bought just didn't last and you didn't have enough money to get more: Never True Transportation Answer Date Recorded In the past 12 months, has l ack of transportation kept you from medical appts, meetings, work or from getting things needed for daily living? No 08/10/2023 Utilities Answer Date Recorded In the past 12 months, has t he electric, gas, oil or water company threatened to shut off services in your home? No 08/10/2023 Depression Answer Date Recorded Patient Health Questionnaire-2 Score 0 08/18/2023 Internet Access Answer Date Recorded Internet Access Q1 Yes 10/19/2023 Internet Access Q2 Not on file 10/19/2023 Sex and Gender Information Value Date Recorded Sex Assigned at Male 12/16/2021 10:14 AM EDT Legal Sex Male 10:14 AM EDT Gender Identity Male 12/16/2021 10:14 AM EDT Sexual Orientation Straight 12/16/2021 10 :14 AM EDT Last Filed Vital Signs Vital Sign Reading Time Taken Comments Blood Pressure 97/64 04/11/2024 3:26 PM EST Pulse 96 04/11/2024 3:26 PM EST Temperature 36.3 C (97.3 F) 04/11/2024 3:26 PM EST Respiratory Rate 14 04/11/2024 3:26 PM EST Oxygen Saturation 98% 04/11/2024 3:26 PM EST Inhaled Oxygen Concentration - - Weight 75.1 kg (165 lb 9.6 oz) 04/11/2024 3:26 P M EST Height 175.3 cm (5' 9 ) 02/02/2024 9:42 AM EST Body Mass Index 24.45 02/02/2024 9:42 AM EST Plan of Treatment Health Maintenance Due Date Last Done Comments Dental Oral Exam 1985 Dental Prophylaxis 1985 Dental X-Ray: Bitewings 1985 Dental X-Ray: Full Mouth 1985 HIV Screening 1985 Disability Screening 1985 Alcohol/Substance Use Screening 1997 Family Planning (PISQ) 2000 HPV Vaccines (1 - Male 3-dose series) 2000 Pneumococcal Vaccine: Pediatrics (0 to 5 Years) and At-Risk Patients (6 to 49) Years (1 of 2 - PCV) 2004 SDOH Screening 08/09/2024 08/10/2023 Depression Screening 08/17/2024 08/18/2023, 08/18/19 COVID-19 Vaccine ( - season) 2024 Influenza Vaccine (#1) 2024 11/12/2010, 2007 Tobacco Screening 04/11/2025 04/11/2024 Lipid Panel 06/28/2027 06/27/2022, 09/2021, 11/27/2020 DTaP/Tdap/Td Vaccines (9 - Td or Tdap) 12/22/2032 12/22/2022, 04/01/2012, 02/21/2011, Additional history exists Zoster Vaccines (1 of 2) 09/29/2035 RSV Patients and Patients Aged 60 years or older (1 - 1-dose 75+ series) 2060 HIB Vaccines Completed 11/20/1987, 11/17/1987 IPV Vaccines Completed 12/29/1989, 03/20, 03/19/1986, Additional history exists Hepatitis B Vaccines Completed 11/09/2015, 01/18/1997, 08/05/1996, Additional history exists Hepatitis C Screening Completed 03/08/2024 Hepatitis A Vaccines Aged Out No long er eligible based on patient's age to complete this topic Meningococcal B Vaccine Aged Out No l onger eligible based on patient's age to complete this topic Meningococcal Vaccine Aged Out No alessandra cee eligible based on patient's age to complete this topic RSV under 20 months Aged Out No longe r eligible based on patient's age to complete this topic Rotavirus Vaccines Aged Out No longer eligible based on patient's age to complete this topic Goals Goal Patient Goal Type Associated Problems Recent Progress Patient-Stated? Author Smoking cessation General No change(2023 2:46 PM EDT) No Alka Bender, PharmD Take your medication every day Lifestyle No change(2023 2:46 PM EDT) No Chanda Proctor PharmD Procedures Procedure Name Priority Date/Time Associated Diagnosis Comments HEPATITIS C AB W/REFL TO HCV RNA, QN, PCR Routine 03/08/2024 1:02 PM EST Nodular acne LIPID PANEL, STANDARD Routine 06/27/2022 11:23 AM EDT Hypercholesterolemi a from Last 3 Months or Most Recently Relevant to Health Maintenance Results * Hepatitis C Antibody with Reflex to HCV, RNA, Quantitative, Real-Time PCR (03/08/2024 1:02 PM EST) Hepatitis C Antibody Nonreactive Nonreactive [facility] Comment:Antibodies to HCV no t detected; does not exclude early acuteHCV infection. Blood Venous blood specimen / Unknown 03/08/2024 1:02 PM EST 03/08/2024 1:02 PM EST Keyanna Askew MD LAB BLOOD ORDERABLES Final Result [facility] [address] [place] [phone] * Lipid Panel, Standard (06/27/2022 11:23 AM EDT) Cholesterol, Total 141 <200 mg/dL [facility] HDL Cholesterol 40 > OR = 40 mg/dL [facility] Triglycerides 127 <150 mg/dL [facility] LDL Cholesterol 79 mg/dL (calc) [facility] Comment: Reference range: <100 Desirable range <100 mg/dL for primary prevention; <70 mg/dL for patients with CHD or diabetic patients with > or = 2 CHD risk factors. LDL-C is now calculated using the Matthew calculation, which is a validated novel method providing better accuracy than the Friedewald equation in the estimation of LDL-C. Familia YANCEY et al. RENARD. 2013;310(19): 9847-3613 (http://education.BioVex/faq/OGG698) Chol/HDLC Ratio 3.5 <5.0 (calc) [facility] Non-HDL Cholesterol 101 <130 mg/dL (calc) [facility] Comment: For patients with diabetes plus 1 major ASCVD risk factor, treating to a non-HDL-C goal of <100 mg/dL (LDL-C of <70 mg/dL) is considered a therapeutic option. Blood Venous blood specimen / Unknown 06/27/2022 11:23 AM EDT 06/27/2022 11:24 AM EDT Narrative [facility] - 07/01/2022 7:51 AM EDT FASTING:YES FASTING: YES [facility] LAB BLOOD ORDERABLES Final Resul t [facility] [address], [place] [address] [facility] [address] [place] [address] from Last 3 Months or Most Recently Relevant to Health Maintenance Insurance [facility] < [address] [place] [id number] Care Teams Optimization Manager Relationship Specialty Start Date End Date Lucy Caldwell ANP [address] [place] [phone] PCP - General Family Medicine 06/28/19
--- OUTSIDE RECORDS SUMMARY | 2024-10-21 12:41 | XMS_ITS | Encounter Summary ---
Author Organization [employer] Address [address] [facility] [address] [place] [address] Care Team Providers Care Bridge Worker Name Role Phone Lucy Caldwell Primary Care Provider [phone] Encounter Details Date Type Department Care Team ([facility] Contact Info) Description 10/28/2022 Orders Only [facility] [address] [place] [address] Keyanna Askew MD [address] [place] [address] Psoriatic arthritis (CMS/HCC) (Primary Dx) Social History Tobacco Use Types Packs/Day Years Used Date Smoking Tobacco: Every Day Cigarettes Smokeless Tobacco: Never Alcohol Use Standard Drinks/Week Comments Yes 0 (1 standard drink = 0.6 oz pur e alcohol) Depression Answer Date Recorded Patient Health Questionnaire-2 Score 0 06/27/2022 Sex and Gender Information Value Date Recorded Sex Assigned at Male 12/16/2021 10:14 AM EDT Legal Sex Male 10:14 AM EDT Gender Identity Male 12/16/2021 10:14 AM EDT Sexual Orientation Straight 12/16/2021 10 :14 AM EDT documented as of this encounter Plan of Treatment Not on file documented as of this encounter Goals Goal Patient Goal Type Associated Problems Recent Progress Patient-Stated? Author Smoking cessation General No change( 024 2:46 PM EDT) No Alka Bender, PharmD documented as of this encounter Visit Diagnoses Diagnosis Psoriatic arthritis (CMS/HCC)- Primary Psoriatic arthropathy documented in this encounter Care Teams Bridge Worker Relationship Specialty Start Date End Date Lucy Caldwell ANP [address] [place] [phone] PCP - General Family Medicine 06/28/19 documented as of this encounter
--- OUTSIDE RECORDS SUMMARY | 2024-10-21 12:41 | XMS_ITS | Encounter Summary ---
Author Organization [email or web address] Address [address] [facility] [address]t [place] [address] Care Team Providers Care General Duty Nurse Name Role Phone Caldwell Lucy REVELES Primary Care Provider [phone] Encounter Details Date Type Department Care Team ([facility] Contact Info) Description 12/10/2022 Orders Only [facility] [address] [place], [place] [phone] Keyanna Askew MD [address] [place] [address] Psoriatic arthritis (CMS/HCC); Psoriatic arthritis (CMS/HCC) Social History Tobacco Use Types Packs/Day Years Used Date Smoking Tobacco: Every Day Cigarettes 1 15 Smokeless Tobacco: Never Alcohol Use Standard Drinks/Week Comments Yes 0 (1 standard drink = 0.6 oz pur e alcohol) Housing Stability Answer Date Recorded What is your housing situation today? I have catherine corrigan 12/01/[address] you li ve. Do you have problems with any of the following? None of the above 12/01/2022 Food Insecurity Answer Date Recorded Within the past 12 months, y ou worried that your food would run out before you got money to buy more: Never True 12/01/2022 Within the past 12 months,th e food you bought just didn't last and you didn't have enough money to get more: Never True Transportation Answer Date Recorded In the past 12 months, has l ack of transportation kept you from medical appts, meetings, work or from getting things needed for daily living? No 12/01/2022 Utilities Answer Date Recorded In the past 12 months, has t he electric, gas, oil or water company threatened to shut off services in your home? No 12/01/2022 Depression Answer Date Recorded Patient Health Questionnaire-2 [...] No change( 024 2:46 PM EDT) No Yamileia, Alka, PharmD documented as of this encounter Visit Diagnoses Diagnosis Psoriatic arthritis (CMS/HCC) Psoriatic arthropathy documented in this encounter Care Teams General Duty Nurse Relationship Specialty Start Date End Date Lucy Caldwell ANP [address] [place] [id number] PCP - General Family Medicine 06/28/19 documented as of this encounter
--- OUTSIDE RECORDS SUMMARY | 2024-10-21 12:41 | XMS_ITS | Encounter Summary ---
Author Organization [employer] Address [address] [facility] [address] [place] [address] Care Team Providers Care Certified Scrum Master Name Role Phone Lucy Caldwell Primary Care Provider [phone] Reason for Visit * Reason Onset Date Comments Nurse Triage 10/06/2023 Encounter Details Date Type Department Care Team ([facility] Contact Info) Description 10/06/2023 Telephone [facility] [address] [place], [place] [phone] Lucy Caldwell ANP [address] [place] [address] Nurse Triage Social History Tobacco Use Types Packs/Day Years [...] Recorded Patient Health Questionnaire-2 Score 0 08/18/2023 Sex and Gender Information Value Date Recorded Sex Assigned at Male 12/16/2021 10:14 AM EDT Legal Sex Male 10:14 AM EDT Gender Identity Male 12/16/2021 10:14 AM EDT Sexual Orientation Straight 12/16/2021 10 :14 AM EDT documented as of this encounter Miscellaneous Notes * Telephone Encounter - Cleo Guillory - 10/06/2023 11:51 AM EDT Symptoms: Back Pain - Not From Injury, Pain - Severe Outcome: Schedule an urgent appointment (within 1 hour) or talk to a nurse or provider soon Reason: Caller denied all higher acuity questions The caller accepted this outcome documented in this encounter Plan of Treatment Not on file documented as of this encounter Goals Goal Patient Goal Type Associated Problems Recent Progress Patient-Stated? Author Smoking cessation General No change(2023 2:46 PM EDT) No Alka Bender PharmReza Take your medication every day Lifestyle No change(2023 2:46 PM EDT) No Chanda Proctor PharmD documented as of this encounter Visit Diagnoses Not on filedocumented in this encounter Additional Health Concerns Assessment Noted Time PHQ-9 Depression Total Score: 5 08/18/19 24 1:41 PM EDT documented as of this encounter Care Teams Certified Scrum Master Relationship Specialty Start Date End Date Lucy Caldwell ANP [address] [place] [address] PCP - General Family Medicine 06/28/19 documented as of this encounter
--- OUTSIDE RECORDS SUMMARY | 2024-10-21 12:41 | XMS_ITS | Clinical Summary ---
Author Organization [facility] Address [address] [place] [phone] Phone Care Team Providers Care [employer] Crew Boss Name Role Phone Karie Lozano DO Primary Care Provider Allergies No known active allergies Medications metoprolol succinate (TOPROL-XL) 100 MG 24 hr tablet Take 1 tablet (100 mg total) by mouth daily. 0 05/16/2021 Active sacubitriL-vals belkis (ENTRESTO) 49-51 mg per tablet Take 1 tablet by mouth 2 (two) times a day. 05/16/2021 Active spironolactone (ALDACTONE) 25 MG tablet Take 1 tablet (25 mg total) by mouth daily. 05/16/2021 Active dapagliflozin (FARXIGA) 10 mg tablet Take 1 tablet (10 mg total) by mouth daily. 05/16/2021 Active torsemide (DEMADEX) 20 MG tablet Take 1 tablet (20 mg total) by mouth daily as needed. 05/16/2021 Active apixaban (ELIQUIS) 5 mg tablet Take 1 tablet (5 mg total) by mouth 2 (two) times a day. 05/17/2021 Active ISOtretinoin (ACCUTANE) 40 MG capsule Take 2 capsules (80 mg total) by mouth daily. 05/17/2021 Active digoxin (LANOXIN) 125 mcg tablet TAKE 1 TABLET BY MOUTH EVERY DAY 90 tablet 3 09/06/2021 Active Active Problems Problem Noted Date Diagnosed Date Intracardiac thrombosis 02/08/2021 Chronic systolic heart failure 10/13/2020 Nonischemic cardiomyopathy 10/13/2020 Intracardiac thrombus 10/13/2020 Alcohol use disorder, moderate, dependence 10/13 Smoking trying to quit 10/13/2020 Social History Tobacco Use Types Packs/Day Years Used Date Smoking Tobacco: Every Day Smokeless Tobacco: Current Education Answer Date Recorded Are you interested in more education? Not on aly e 06/13/2022 Are you concerned about learning? Not on file 06/13/2022 No 06/13/2022 No 06/13/2022 Digital Access Answer Date Recorded No 07/11/2022 No 07/11/2022 Reliable internet access at home? Not on file 07/11/2022 Device with a working camera? Not on file Sex and Gender Information Value Date Recorded Sex Assigned at Not on file Legal Sex Male 9:13 PM EDT Gender Identity Not on file Sexual Orientation Not on file Last Filed Vital Signs Vital Sign Reading Time Taken Comments Blood Pressure 112/74 05/15/2021 5:03 PM EDT Pulse 95 05/15/2021 5:03 PM EDT Temperature - - Respiratory Rate - - Oxygen Saturation 99% 05/15/2021 5:03 PM EDT Inhaled Oxygen Concentration - - Weight 70 kg (154 lb 4.8 oz) 05/15/2021 5:03 PM EDT Height 177.8 cm (5' 10 ) 01/08/2015 1:53 AM EST Body Mass Index 22.14 01/08/2015 1:53 AM EST Plan of Treatment Health Maintenance Due Date Last Done Comments SMOKING Hx and SMOKELESS TOBACCO SCREENING 1998 HEPATITIS C SCREENING 09/29/2003 HIV ONE-TIME SCREENING (18-6 5 YEARS) 09/29/2003 PNEUMOCOCCAL VACCINES (0-49 years) (1 of 2 - PCV) 2004 Adult Td,Tdap Booster 04/01/2022 04/01/2012 , 02/21/2011, 01/30/1999 CREATININE LEVEL 05/15/2022 05/15/2021, 10/10/2020 DEPRESSION SCREENING 05/15/2022 05/15/2021 POTASSIUM LEVEL 05/15/2022 05/15/2021, 10/10/2020 INFLUENZA VACCINE (#1) 2024 1, 12/07/2007 COVID-19 VACCINE (2023-2 5 season) 2024 LIPID PANEL 06/28/2027 06/27/2022, 05/15/2021, 10/10/2020 HIB VACCINES Completed 11/20/1987 HEPATITIS A VACCINES Aged Out No long er eligible based on patient's age to complete this topic MENINGOCOCCAL VACCINES (ACWY) Aged Out No longer eligible based on patient's age to complete this topic MENINGOCOCCAL VACCINES (B) Aged Out N o longer eligible based on patient's age to complete this topic Medical Devices Not on file Procedures Procedure Name Priority Date/Time Associated Diagnosis Comments LIPID PANEL Routine 05/15/2021 5:35 PM EDT Nonischemic cardiomyopathy COMPREHENSIVE METABOLIC PANEL Routine 05/15/2021 5:35 PM EDT Nonischemic cardiomyopathy from Last 3 Months or Most Recently Relevant to Health Maintenance Results * (ABNORMAL) Comprehensive metabolic panel (05/15/2021 5:35 PM EDT) SODIUM 136 136 - 145 mmol/L [facility] POTASSIUM 5.0 3.4 - 5.1 mmol/L [facility] CHLORIDE 97(L) 98 - 107 mmol/L [facility] CO2 24 22 - 31 mmol/L [facility] BUN 12 6 - 23 mg/dL [facility] CREATININE 0.83 0.50 - 1.20 mg/dL [facility] GLUCOSE 84 70 - 100 mg/dL [facility] ALBUMIN 4.3 3.5 - 5.2 g/dL [facility] TOTAL PROTEIN 8.5(H) 6.4 - 8.3 g/dL [facility] CALCIUM 10.1 8.8 - 10.7 mg/dL [facility] ALKALINE PHOSPHATASE 125 35 - 130 U/L [facility] TOTAL BILIRUBIN 0.8 0.0 - 1.0 mg/dL [facility] AST 25 10 - 50 U/L [facility] ALT 20 10 - 50 U/L [facility] GLOBULIN 4.2 2.2 - 4.2 g/dL [facility] EGFR 117 >59 mL/min/1. 73m2 [facility] Comment:Estimated glomerular filtration rate calculated using the CKD-EPI refit equation. ANION GAP 15 7 - 17 mmol/L [facility] 05/15/2021 5:35 PM EDT 05/15/2021 5:49 PM EDT Angela Abreu ER RN LAB BLOOD ORDERABLES Fi nal Result Performing Organization Address City/[facility] Co de Phone Number [facility] [address] [place] [phone] * (ABNORMAL) Lipid panel (05/15/2021 5:35 PM EDT) CHOLESTEROL 127 <200 mg/dL [facility] TRIGLYCERIDES 113 35 - 150 mg/dL [facility] HDL 33(L) 40 - 80 mg/dL [facility] CALCULATED LDL 71 50 - 129 mg/dL [facility] VLDL 23 mg/dL [facility] CARDIAC RISK RATIO 3.8 0.0 - 4.0 [facility] 05/15/2021 5:35 PM EDT 05/15/2021 5:49 PM EDT Angela Abreu ER RN LAB BLOOD ORDERABLES Fi nal Result Performing Organization Address [facility] de Phone Number [facility] [address] [place] [phone] from Last 3 Months or Most Recently Relevant to Health Maintenance Insurance [place] [id number] [facility] ONE CARE MEDICARE REPLACEMENT MEDICARE PART A & B Member Subscriber Plan / Payer (Ef fective 2021-) Name:Wilfrido Ma Member ID:[id number] Relation to Subscriber:Self Name:Wilfrido Ma Subscriber ID:[id number] Payer ID:[id number] Group ID:Not on file Type:Medicare Address: [facility] [employer] [facility] [address] [place] [phone] [facility] ONE CARE MEDICARE REPLACEMENT MEDICARE PART A & B Member Subscriber Plan / Payer (Ef fective 2021-) Name:Wilfrido Ma Member ID:[id number] Relation to Subscriber:Self Name:Wilfrido Ma Subscriber ID:[id number] Payer ID:[id number] Group ID:Not on file Type:Medicare Address: [employer] [address] ONE CARE MEDICARE REPLACEMENT MEDICARE PART A & B Member Subscriber Plan / Payer ( fective 2021-) Name:Wilfrido Ma Member ID:[id number] Relation to Subscriber:Self Name:Wilfrido Ma Subscriber ID:[id number] Payer ID:[id number] Group ID:Not on file Type:Medicare Address: [employer] [address] CARE MEDICARE REPLACEMENT MEDICARE PART A & B Member Subscriber Plan / Payer (Ef fective 2021-) Name:Wilfrido Ma Member ID:[id number] Relation to Subscriber:Self Name:Wilfrido Ma Subscriber ID:[id number] Payer ID:[id number] Group ID:Not on file Type:Medicare Address: [employer] [address] ONE CARE MEDICARE REPLACEMENT [facility] [facility] MEDICARE PART A & B [facility] CARE MEDICARE REPLACEMENT Care Teams [employer] Crew Boss Relationship Specialty Start Date End Date Karie Lozano DO [address] [place] [address] PCP - General 12/02/16 Additional Source Comments The information contained in this document represents components of the legal health record. It is not the complete legal health record.[facility]
--- OUTSIDE RECORDS SUMMARY | 2024-10-21 12:41 | XMS_ITS | Encounter Summary ---
Author Organization [employer] Address [address] [facility] 7t [place] [address] Care Team Providers Care Secretary Administrative Assistant Name Role Phone Lucy Caldwell Primary Care Provider [phone] Encounter Details Date Type Department Care Team ([facility] Contact Info) Description 09/26/2022 Orders Only [facility] CH[facility] MED & PEDS [address] [place], [place] [phone] Keyanna Askew MD [address] [place] [address] Social History Tobacco Use Types Packs/Day Years [...] No change( 024 2:46 PM EDT) No Puia, Alka, PharmD documented as of this encounter Visit Diagnoses Not on filedocumented in this encounter Care Teams Secretary Administrative Assistant Relationship Specialty Start Date End Date Lucy Caldwell ANP [address] [place] [address] PCP - General Family Medicine 06/28/19 documented as of this encounter
[2024-10-21 13:18] LABS: B Type Natriuretic Peptide 161 pg/mL (<100)
== END 2024-10-21 12:00 | disposition home or self-care (01) ==
LOC: HO.HHCL 11:59
PROVIDERS: PCP Nurse Practitioner Primary Care; Visit Provider Nurse Practitioner Primary Care
DX: I50.22 Chronic systolic (congestive) heart failure (principal)
CPT/HCPCS: 36415; 83880

== ENCOUNTER 2025-02-14 13:53 | Outpatient (AMB) | payer OTHER, SELFPAY ==
--- NOTE | 2025-02-14 13:57 | A.OFFVIS_ITS ---
Vital Signs 02/14/25 14:12 Height 5 ft 9 in Weight 171 lb BMI 25.2 BP 100/60 Blood Pressure Location Rt brachial Position Sitting Pulse 110 H Intake Visit Reasons: HS axilary Intake Note: Patient referred by PCP Dr. Caldwell for assessment of bilateral axillary HS. Sees senior corporate strategy manager at Dr. Mariano office. Cosentyx injection once a month. Derm follow up yearly. Does not use Hibiclens. Reports brothers and mother with hx of HS. Of note: HS track on left inguinal groin removed as teenager. Patient c/o: opened areas bilateral axilla w/ yellowish discharge. Foul odor. can't use deodorat. Historian Dramatic [employer] Required: No Accompanied by: Self / Same As Patient Allergies garlic Allergy (Mild, Verified 02/14/25 14:08) Unknown red dye Allergy (Mild, Verified 02/14/25 14:08) Unknown Medication List - Last Reconciled 02/14/25 by Dain Ruvalcaba MD apixaban (Eliquis) 5 mg PO BID dapagliflozin propanediol (Farxiga) 10 mg PO DAILY digoxin 125 mcg PO DAILY folic acid 1 mg PO DAILY isotretinoin (Claravis) 40 mg PO BID metoprolol succinate ER 100 mg PO DAILY sacubitril-valsartan 49-51 mg (Entresto) 1 tab PO BID spironolactone 25 mg PO DAILY thiamine HCl (vitamin B1) (Vitamin B-1) 100 mg PO DAILY HPI Comments Details: Patient reports very long history (since an adolescent) of suffering from hidradenitis suppurativa. He had his left inguinal region excise and now presents with bilateral axillary involvement. He reports chronic drainage on each side and is here for definitive management. He has seen Dermatology in the past but they will only visit with him once a year and prescribed topical treatments. He reports the story really work for him. [facility] Medical History Cardiac defibrillator in place Low blood pressure Osteopenia Alcohol use Heart failure Social History Alcohol intake: current Alcohol intake frequency: 3 or more drinks per day Alcohol type: beer Patient Tobacco Use Status: Current everyday Tobacco user Cigarettes Per Day: 20 Current occupational status: disabled Current occupation: rt hand Review of Systems Const All systems reviewed & are unremarkable except as noted in HPI and below Physical Exam Vital Signs: Last Vital Signs Pulse 110 H 02/14/25 14:12 BP 100/60 02/14/25 14:12 BMI result Body Mass Index 25.2 Const General: poor hygiene and tired appearing HEENT Head: Yes normal to inspection General nose exam: Normal external nose present Eyes Pupils: Equal, round and reactive pupils present EOM: EOMs intact bilaterally Neck Neck: Yes normal visual inspection Chest Other: Severe bilateral hidradenitis suppurativa in both axilla involving the entire defined areas. Multiple draining fistulous tracts in both axilla with evidence of prior attempts at excision. No evidence of large fluid collections or necrotizing soft tissue infection. Resp Effort & Inspection: normal respiratory effort and able to speak in complete sentences GI Inspection: Yes normal to inspection Neuro Cranial nerves: Yes Equal, round and reactive pupils present Extrem Other: Limited range of motion of upper extremities secondary to pain from bilateral axillary hidradenitis Assessment & Plan Assessment & Plan (1) Hidradenitis suppurativa: Code(s): L73.2 - Hidradenitis suppurativa Category: Medical Plan: I told the patient that I in this facility and limited ability to appropriately manage large regional hidradenitis as a multidisciplinary approach involving surgery and plastics yields the best results. He indicated that he understood. I offered him a referral to the hidradenitis Center at [facility] in [place] and he accepted and agreed. In the meantime he is encouraged to contact us should you have any questions or problems. Orders: Referrals General Surgery Referral L73.2 - Hidradenitis suppurativa Coding Level of Care Code New Pt Level 4 (26692) Diagnoses Hidradenitis suppurativa L73.2 Time Spent (min) 45 Comment Record review patient visit and coordination of care time
[2025-02-14 14:12] VITALS: BP 100/60; PULSE 110; BMI 25.2
--- OUTSIDE RECORDS SUMMARY | 2025-02-14 17:42 | XMS_ITS | Encounter Summary ---
Author Organization [employer] Address [address] [facility] 7t [place] [address] Care Team Providers Care Head Of It Name Role Phone Caldwell Lucy REVELES Primary Care Provider [phone] Encounter Details Date Type Department Care Team ([facility] Contact Info) Description 12/10/2022 Orders Only [facility] CH[facility] MED & PEDS [address] [place], [place] [phone] Keyanna Askew MD [address] [place] [address] Psoriatic arthritis (CMS/HCC); Psoriatic arthritis (CMS/HCC) Social [...] as of this encounter Plan of Treatment Upcoming Encounters Date Type Department Care Team (Late st Contact Info) Description 03/30/2025 1:30 PM EST Office Visit [facility] ADULT DENTAL [address] [place] [address] Julio Sandoval DD [address] [place] [address] 04/17/2025 1:30 PM EST Office Visit [facility] ADULT DENTAL [address] [place] [address] Julio Sandoval DDS [address] [place] [address] 05/02/2025 11:00 AM EDT Office Visit [facility] ADULT DENTAL [address] [place] [address] Dang, Aruna [address] [place] [address] 05/04/2025 1:00 PM EDT Office Visit [facility] MEDICINE [address] [place] [address] Lucy Caldwell ANP [address] [place] [address] 05/10/2025 11:00 AM EDT Office Visit [facility] ADULT DENTAL [address] [place] [address] Dang, Aruna [address] [place] [address] documented as of this encounter Goals Goal Patient Goal Type Associated Problems Recent Progress Patient-Stated? Author Smoking cessation General No change( 024 2:46 PM EDT) No Puia, Alka, Jose documented as of this encounter Visit Diagnoses Diagnosis Psoriatic arthritis (CMS/HCC) (HCC) Psoriatic arthropathy documented in this encounter Care Teams Head Of It Relationship Specialty Start Date End Date Lucy Caldwell ANP [address] [place] [address] PCP - General Family Medicine 06/28/19 documented as of this encounter
--- OUTSIDE RECORDS SUMMARY | 2025-02-14 17:42 | XMS_ITS | Encounter Summary ---
Author Organization [employer] Address [address] [facility] 7t [place] [address] Care Team Providers Care Appliance Line Assembler Name Role Phone Lucy Caldwell ANUSHKA Primary Care Provider [phone] Encounter Details Date Type Department Care Team (Late Contact Info) Description 10/28/2022 Orders Only [facility] CH[facility] MED & PEDS [address] [place], [place] [phone] Keyanna Askew MD [address] [place], [place] [phone] Psoriatic arthritis (CMS/HCC) (Primary Dx) Social History [...] Description 03/30/2025 1:30 PM EST Office Visit [facility] ADULT DENTAL [address] [place], [place] [phone] Julio Sandoval DDS [address] [place], [place] [phone] 04/17/2025 1:30 PM EST Office Visit [facility] ADULT DENTAL [address] [place] [address] Julio Sandoval DDS [address] [place] [address] 05/02/2025 11:00 AM EDT Office Visit [facility] ADULT DENTAL [address] [place] [address] Aruna Leong [address] [place] [address] 05/04/2025 1:00 PM EDT Office Visit [facility] MEDICINE [address] [place] [address] Lucy Caldwell ANP [address] [place] [address] 05/10/2025 11:00 AM EDT Office Visit [facility] ADULT DENTAL [address] [place] [address] Aruna Leong [address] [place] [address] documented as of this encounter Goals Goal Patient Goal Type Associated Problems Recent Progress Patient-Stated? Author Smoking cessation General No change( 024 2:46 PM EDT) No Alka Bender, PharmD documented as of this encounter Visit Diagnoses Diagnosis Psoriatic arthritis (CMS/HCC) (HCC)- Primary Psoriatic arthropathy documented in this encounter Care Teams Appliance Line Assembler Relationship Specialty Start Date End Date Lucy Caldwell ANP [address] [place] [address] PCP - General Family Medicine 06/28/19 documented as of this encounter
--- OUTSIDE RECORDS SUMMARY | 2025-02-14 17:42 | XMS_ITS | Encounter Summary ---
Author Organization [employer] Address [address] [facility] 7t [place] [address] Care Team Providers Care Applications Sales Representative Name Role Phone Lucy Caldwell Primary Care Provider Reason for Visit * Reason Onset Date Comments Nurse Triage 10/06/2023 Encounter Details Date Type Department Care Team ([facility] Contact Info) Description 10/06/2023 Telephone [facility] MEDICINE [address] [place], [place] [phone] Lucy Caldwell ANP [address] [place] [address] Nurse Triage Social History Tobacco Use Types [...] documented in this encounter Plan of Treatment Upcoming Encounters Date Type Department Care Team (Late st Contact Info) Description 03/30/2025 1:30 PM EST Office Visit [facility] ADULT DENTAL [address] [place] [address] Julio Sandoval DDS [address] [place] [address] 04/17/2025 1:30 PM EST Office Visit [facility] ADULT DENTAL [address] [place] [address] Julio Sandoval DDS [address] [place] [address] 05/02/2025 11:00 AM EDT Office Visit [facility] ADULT DENTAL [address] [place] [address] Aruna Leong [address] [place] [address] 05/04/2025 1:00 PM EDT Office Visit [facility] MEDICINE [address] [place] [address] Lucy Caldwell ANP [address] [place] [address] 05/10/2025 11:00 AM EDT Office Visit [facility] ADULT DENTAL [address] [place] [address] Aruna Leong [address] [place] [address] documented as of this encounter Goals Goal Patient Goal Type Associated Problems Recent Progress Patient-Stated? Author Smoking cessation General No change(2023 2:46 PM EDT) No Alka Bender, PharmReza Take your medication every day Lifestyle No change(2023 2:46 PM EDT) No Chanda Proctor PharmD documented as of this encounter Visit Diagnoses Not on filedocumented in this encounter Additional Health Concerns Assessment Noted Time PHQ-9 Depression Total Score: 5 08/18/19 24 1:41 PM EDT documented as of this encounter Care Teams Applications Sales Representative Relationship Specialty Start Date End Date Lucy Caldwell ANP [address] [place] [address] PCP - General Family Medicine 06/28/19 documented as of this encounter
--- OUTSIDE RECORDS SUMMARY | 2025-02-14 17:42 | XMS_ITS | Encounter Summary ---
Author Organization [employer] Address [address] [facility] 7t [place] [address] Care Team Providers Care Grout Machine Operator Name Role Phone Javi Lucy REVELES Primary Care Provider [phone] Encounter Details Date Type Department Care Team (Late st Contact Info) Description 09/26/2022 Orders Only [facility] CHC MED & PEDS [address] [place], [place] [phone] Keyanna Askew MD [address] [place], [place] [phone] Social History Tobacco Use Types Packs/Day Years [...] Description 03/30/2025 1:30 PM EST Office Visit [facility] ADULT DENTAL [address] [place] [address] Julio Sandoval DDS [address] [place] [address] 04/17/2025 1:30 PM EST Office Visit [facility] ADULT DENTAL [address] [place] [address] Julio Sandoval, DDS [address] [place] [address] 05/02/2025 11:00 AM EDT Office Visit [facility] ADULT DENTAL [address] [place] [address] Aruna Leong [address] [place] [address] 05/04/2025 1:00 PM EDT Office Visit [facility] MEDICINE [address] [place] [address] Lucy Caldwell ANP [address] [place] [address] 05/10/2025 11:00 AM EDT Office Visit [facility] ADULT DENTAL [address] [place] [address] Aruna Leong [address] [place] [address] documented as of this encounter Goals Goal Patient Goal Type Associated Problems Recent Progress Patient-Stated? Author Smoking cessation General No change( 024 2:46 PM EDT) No Alka Bender, PharmD documented as of this encounter Visit Diagnoses Not on filedocumented in this encounter Care Teams Grout Machine Operator Relationship Specialty Start Date End Date Lucy Caldwell ANP [address] [place] [address] PCP - General Family Medicine 06/28/19 documented as of this encounter
--- OUTSIDE RECORDS SUMMARY | 2025-02-14 17:42 | XMS_ITS | Clinical Summary ---
Author Organization [employer] Address [address] [facility] 7t [place] [address] Care Team Providers Care Executive Officer Name Role Phone Lucy Caldwell ANUSHKA Primary Care Provider [phone] Allergies Active Allergy Reactions Criticality Noted Date [...] (Pulse Oximeter) miscIndicatio ns:Chronic systolic heart failure (HCC) Use to check SpO2, if < 92%, recheck and if still low, call 911 or go to ER 1 each 08/26/19 24 Active varenicline (Chantix) 1 MG tablet TAKE 1 TABLET BY MOUTH TWICE DAILY IN THE MORNING AND IN THE EVENING WITH FOOD 60 tablet 05/13/19 25 Active thiamine (Vitamin B-1) 100 MG tablet TAKE 1 TABLET BY MOUTH EVERY MORNING 90 tablet 2 5 10:49 AM EST 10/07/19 25 Active folic acid (Folvite) 1 MG tablet TAKE 1 TABLET BY MOUTH EVERY MORNING 90 tablet 1 01/04/20 25 Active Multiple Vitamin (Multivitamin ) tablet TAKE 1 TABLET BY MOUTH EVERY MORNING 90 tablet 1 01/04/20 25 Active Cosentyx Sensoready, 300 MG, 150 MG/ML solution auto-injector Indications:P soriatic arthritis (CMS/HCC) ([facility]) INJECT 2 ML SUBCUTANEOUSLY EVERY 30 DAYS 2 mL 11 5 8:48 AM EST 01/07/20 25 Active chlorhexidine (Peridex) 0.12 % solution Use 15 mL in the mouth or throat if needed (for mouthwash 15 ml for 30 seconds, swish and spit) for up to 14 days. 473 mL 5 11:02 AM EST 02/01/20 25 2025 Active D3-1000 25 MCG (1000 UT) capsuleIndica tions:Osteope sumanth of neck of left femur,Low vitamin D level TAKE 1 CAPSULE BY MOUTH EVERY MORNING 90 capsule 1 02/03/20 25 Active D3-1000 25 MCG (1000 UT) capsuleIndica tions:Osteope sumanth of neck of left femur,Low vitamin D level TAKE 1 CAPSULE BY MOUTH EVERY MORNING 90 capsule 1 07/06/19 25 2024 Discontinued Active Problems Problem Noted Date Diagnosed Date Psoriatic arthritis (CMS/HCC) 08/18/2023 Overview (08/18/2023): Follows w/ [facility] Derm team Cosentyx 300mg q30d Osteopenia of neck of left femur 12/02/2022 Overview (12/02/2022): z-score on DEXA -2.3 Low vitamin D level 12/02/2022 Current drinker of alcohol 08/06/2022 Left ventricular thrombus 08/06/2022 Thrombus of right ventricle 08/06/2022 Stage 2 chronic kidney disease 08/06/2022 Tobacco user 01/23/2022 Decreased cardiac ejection fraction 06/05/2021 Alcohol use disorder, moderate, dependence (CMS/ HCC) 10/13/2020 Intracardiac thrombus 10/13/2020 Nonischemic cardiomyopathy (CMS/HCC) 10/13/2020 Hypercholesterolemia 10/14/2019 Cardiac sarcoidosis 08/26/2019 Low [...] in June [address] Taylor at [facility]. Has had appt w/ [facility], test kit was [place]. No result in chart. He has SOB [...] is to cont plan per cardiology and [facility] specialists. Urged to please f/u with [facility] and local ([facility]) specialists. Will request updated [facility] notes. Continue daily weights, BP checks, walking as much as tolerated, smoking cessation and etoh reduction encouraged. MEDS: Entresto 97-103mg BID, metoprolol succ 100mg QD, digoxin 0.250mg QD, shantanu 25mg QD, (had also been on dapagliflozin 10mg QD, torsemide 20mg QD) Eliquis 5mg BID (intracardiac thrombus) Specialists: Dr. Taylor at [facility]; [facility] Cardiology Dr. Ford -diagnosed w/ advanced heart [...] Encounters Date Type Department Care Team Description 02/02/2025 1:30 PM EST Office Visit [facility] [address] [place] [address] Lucy Caldwell ANP Chronic systolic heart failure (HCC) (Primary Dx); Psoriatic arthritis (CMS/HCC) (HCC); Osteopenia of neck of left femur; Hidradenitis; Cigarette nicotine dependence without complication; Dietary counseling; Exercise counseling; Routine screening for STI (sexually transmitted infection) 02/02/[address] [address] Lucy Caldwell ANP cardioloy notes 02/02/2025 Travel 02/02/[address] [address] Lucy Caldwell ANP Osteopenia of neck of left femur; Low vitamin D level 01/31/2025 9:30 AM EST Office Visit [facility] ADULT DENTAL [address] [place] [address] Aruna Leong Stage 2 grade B generalized periodontitis per AAP/EFP 2017 classification (Primary Dx); Acute gingival inflammation; Gingival bleeding; Dental abscess; Stage 3 grade B generalized periodontitis per AAP/EFP 2017 classification 01/31/2025 Telephone [facility] [address] [place] [address] Sharmila Black MA 01/06/2025 Refill [facility] [address] [place], [place] [phone] Keyanna Askew MD Psoriatic arthritis ([facility]/HCC) (HCC) 01/03/2025 Refill [facility] [address] [place] [address] Lucy Caldwell ANP 12/22/2024 Telephone [facility] [address] [place] [address] Lucy Caldwell ANP No Show 12/19/2024 Telephone [facility] [address] [place] [address] Lucy Caldwell ANP chart prep 12/15/2024 Patient Outreach [facility] [address] [place] [address] Lucy Caldwell ANP Pre-visit Planning (SDOH negative, Tobacco screening positive. ) 11/17/2024 Telephone [facility] [address] [place] [address] Lana Landis, RN Paperwork/Forms 11/16/2024 1:00 PM EDT Office Visit [facility] ADULT DENTAL [address] [place], [place] [phone] Mehnaz Garcia DDS Periodontal disease (Primary Dx); Dental abscess from Last 3 Months Immunizations Immunization Administration Dates Next Due DTP 12/29/1989, 8,05/17/1986,1986,01/16/1986 Hep B, Adolescent or Pediatric 01/18/1997,1996,06/30/1996 Hep B, adult 11/09/2015 Hib ([facility]) 11/20/1987,11/17/1987 IPV 12/29/1989, 8,03/19/1986,1985 Influenza, IIV3, injectable [...] Answer Date Recorded Patient Health Questionnaire-9 Score 10 02/02/2025 Patient Health Questionnaire-9 Score 10 02/02/2025 Last PHQ-9: Questionnaire Data Not on file 1 04/05/2024 Housing Stability Answer Date Recorded What is your housing situation today? I have catherine corrigan 12/15/[address] you li ve. Do you have problems with any of the following? None of the above 12/15/2024 Food Insecurity Answer Date Recorded Within the past 12 months, y ou worried that your food would run out before you got money to buy more: Never True 12/15/2024 Within the past 12 months,th e food you bought just didn't last and you didn't have enough money to get more: Never True Transportation Answer Date Recorded In the past 12 months, has l ack of transportation kept you from medical appts, meetings, work or from getting things needed for daily living? No 12/15/2024 Utilities Answer Date Recorded In the past 12 months, has t he electric, gas, oil or water company threatened to shut off services in your home? No 12/15/2024 Depression Answer Date Recorded Patient Health Questionnaire-2 Score 2 02/02/2025 Internet Access Answer Date Recorded Internet Access [...] Sign Reading Time Taken Comments Blood Pressure 130/80 02/02/2025 1:30 PM EST Pulse 66 02/02/2025 1:30 PM EST Temperature 35.9 C (96.6 F) 02/02/2025 1:30 PM EST Respiratory Rate 20 02/02/2025 1:30 PM EST Oxygen Saturation 98% 02/02/2025 1:30 PM EST Inhaled Oxygen Concentration - - Weight 77.1 kg (170 lb) 02/02/2025 1:30 PM EST Height 175.3 cm (5' 9 ) 02/02/2025 1:30 PM EST Body Mass Index 25.1 02/02/2025 1:30 PM EST Plan of Treatment Upcoming Encounters Date Type Department Care Team (Late st Contact Info) Description 03/30/2025 1:30 PM EST Office Visit [facility] ADULT DENTAL [address] [place] [address] Julio Sandoval, KIERRAS [address] [place] [address] 04/17/2025 1:30 PM EST Office Visit [facility] ADULT DENTAL [address] [place] [address] Julio Sandoval, DDS [address] [place] [address] 05/02/2025 11:00 AM EDT Office Visit [facility] ADULT DENTAL [address] [place] [address] Dang, Aruna [address] [place] [address] 05/04/2025 1:00 PM EDT Office Visit [facility] [address] [place] [address] Lucy Caldwell, ANP [address] [place] [address] 05/10/2025 11:00 AM EDT Office Visit [facility] ADULT DENTAL [address] [place] [address] Dang Aruna [address] [place] [address] Health Maintenance Due Date Last Done Comments HIV Screening 1985 Family Planning (PISQ) 2000 HPV Vaccines (1 - Male 3-dose series) 2000 Pneumococcal Vaccine: Pediatrics (0 to 5 Years) and At-Risk Patients (6 to 49) Years (1 of 2 - PCV) 2004 COVID-19 Vaccine ( - 2024- season) 2024 Influenza Vaccine (#1) 2024 11/12/2010, 2007 Dental Oral Exam 08/02/2025 01/31/2025 Dental Prophylaxis 08/02/2025 01/31/2025 Depression Monitoring 08/03/2025 02/02/2025, 025 SDOH Screening 12/15/2025 12/15/2024 Dental X-Ray: Bitewings 02/01/2026 01/31/2025, 11/16 Alcohol/Substance Use Screening 02/02/2026 02/02/2025 Disability Screening 02/02/2026 02/02/2025 Tobacco Screening 02/02/2026 02/02/2025 Lipid Panel 06/28/2027 06/27/2022, 03/0 09/2021, 11/27/2020 Dental X-Ray: Full Mouth 02/02/2028 01/31/2025 DTaP/Tdap/Td Vaccines (9 - Td or Tdap) [...] change(2023 2:46 PM EDT) No Alka Bender PharmD Take your medication every day Lifestyle No change(2023 2:46 PM EDT) No Chanda Proctor PharmD Procedures Procedure Name Priority Date/Time Associated Diagnosis Comments INTRAORAL - COMPLETE SERIES OF RADIOGRAPHIC IMAGES Routine 01/31/2025 9:30 AM EST COMPREHENSIVE ORAL EVALUATION - NEW OR ESTABLISHED PATIENT Routine 01/31/2025 9:30 AM EST CASE PRESENTATION, DETAILED AND EXTENSIVE TREATMENT PLANNING Routine 01/31/2025 9:30 AM EST Stage 3 grade B generalized periodontitis per AAP/EFP 2017 classification Acute gingival inflammation Gingival bleeding Dental abscess Full PROPHYLAXIS - ADULT Routine 01/31/2025 9:30 AM EST Stage 3 grade B generalized periodontitis per AAP/EFP 2017 classification Acute gingival inflammation Gingival bleeding Dental abscess 19 DARRIUS AMALGAM FILLING Routine 01/31/2025 12:00 AM EST 31 O AMALGAM FILLING Routine 01/31/2025 12:00 AM EST 30 O AMALGAM FILLING Routine 01/31/2025 12:00 AM EST 18 O AMALGAM FILLING Routine 01/31/2025 12:00 AM EST 15 O AMALGAM FILLING Routine 01/31/2025 12:00 AM EST 14 O AMALGAM FILLING Routine 01/31/2025 12:00 AM EST 13 O AMALGAM FILLING Routine 01/31/2025 12:00 AM EST 12 O AMALGAM FILLING Routine 01/31/2025 12:00 AM EST 5 O AMALGAM FILLING Routine 01/31/2025 1 2:00 AM EST 4 O AMALGAM FILLING Routine 01/31/2025 1 2:00 AM EST 2 O AMALGAM FILLING Routine 01/31/2025 1 2:00 AM EST 3 O AMALGAM FILLING Routine 01/31/2025 1 2:00 AM EST 29 EXTRACTION Routine 01/31/2025 12:00 AM EST 32 EXTRACTION Routine 01/31/2025 12:00 AM EST 16 EXTRACTION Routine 01/31/2025 12:00 AM EST 1 EXTRACTION Routine 01/31/2025 12:00 AM EST CASE PRESENTATION, DETAILED AND EXTENSIVE TREATMENT PLANNING Routine 11/16/2024 1:00 PM EDT BITEWING - SINGLE RADIOGRAPHIC IMAGE Routine 11/16/2024 1:00 PM EDT INTRAORAL - PERIAPICAL FIRST RADIOGRAPHIC IMAGE Routine 11/16/2024 1:00 PM EDT PALLIATIVE (EMERGENCY) TREATMENT OF DENTAL PAIN - MINOR PROCEDURE Routine 11/16/2024 1:00 PM EDT HEPATITIS C AB W/REFL TO HCV RNA, QN, PCR Routine 03/08/2024 1:02 PM EST Nodular acne LIPID PANEL, STANDARD Routine 06/27/2022 11:23 AM EDT Hypercholesterolemia from Last 3 Months or Most Recently Relevant to Health Maintenance Results * Hepatitis C Antibody with Reflex to HCV, RNA, Quantitative, Real-Time PCR (03/08/2024 1:02 PM EST) Hepatitis C Antibody Nonreactive Nonreactive [facility] Comment:Antibodies to HCV no t detected; does not exclude early acuteHCV infection. Blood Venous blood specimen / Unknown 03/08/2024 1:02 PM EST 03/08/2024 1:02 PM EST us Keyanna Askew MD LAB BLOOD ORDERABLES Final Result [facility] [address] [place] [phone] * Lipid Panel, Standard (06/27/2022 11:23 AM EDT) Pathologist [facility] Cholesterol, Total 141 <200 mg/dL [facility] HDL Cholesterol 40 > OR = 40 mg/dL [facility] Triglycerides 127 <150 mg/dL [facility] LDL Cholesterol 79 mg/dL (calc) [facility] Comment: Reference range: <100 Desirable range <100 mg/dL for primary prevention; <70 mg/dL for patients with CHD or diabetic patients with > or = 2 CHD risk factors. LDL-C is now calculated using the Familia-Jocelyne calculation, which is a validated novel method providing better accuracy than the Friedewald equation in the estimation of LDL-C. Familia YANCEY et al. RENARD. 2013;310(19): 0955-0649 (http://education.Geev.Me Tech/faq/SGV897) Chol/HDLC Ratio 3.5 <5.0 (calc) [facility] Non-HDL Cholesterol 101 <130 mg/dL (calc) [facility] Comment: For patients with diabetes plus 1 major ASCVD risk factor, treating to a non-HDL-C goal of <100 mg/dL (LDL-C of <70 mg/dL) is considered a therapeutic option. Blood Venous blood specimen / Unknown 06/27/2022 11:23 AM EDT 06/27/2022 11:24 AM EDT Narrative [facility] - 07/01/2022 7:51 AM EDT FASTING:YES FASTING: YES [facility] LAB BLOOD ORDERABLES Final Resul t [facility] [address], [place] [address] [facility] [address] [place] [phone] from Last 3 Months or Most Recently Relevant to Health Maintenance Insurance 3 [place] [address] [facility] < [address] [place] [phone] [facility] [address] Care Teams Executive Officer Relationship Specialty Start Date End Date Lucy Caldwell ANP [address] [place] [phone] PCP - General Family Medicine 06/28/19
--- OUTSIDE RECORDS SUMMARY | 2025-02-14 17:42 | XMS_ITS | Encounter Summary ---
Author Organization [employer] Address [address] [place] [address] 7[address] [place] [address] Care Team Providers Care Engine Builder Name Role Phone Lucy Caldwell ANUSHKA Primary Care Provider [phone] Encounter Details Date Type Department Care Team (Late st Contact Info) Description 02/25/2022 Orders Only [facility] MEDICINE [address] [place] [address] Keyanna Askew MD [address] [place], [place] [phone] Cystic acne (Primary Dx) Social History Tobacco [...] Description 03/30/2025 1:30 PM EST Office Visit [facility] ADULT DENTAL [address] [place] [address] Julio Sandoval DDS [address] [place] [address] 04/17/2025 1:30 PM EST Office Visit [facility] ADULT DENTAL [address] [place] [address] Julio Sandoval DDS [address] [place] [address] 05/02/2025 11:00 AM EDT Office Visit [facility] ADULT DENTAL [address] [place] [address] Aruna Leong [address] [place] [address] 05/04/2025 1:00 PM EDT Office Visit [facility] MEDICINE [address] [place] [address] Lucy Caldwell ANP [address] [place] [address] 05/10/2025 11:00 AM EDT Office Visit [facility] ADULT DENTAL [address] [place] [address] Aruna Leong [address] [place] [address] documented as of this encounter Visit Diagnoses Diagnosis Cystic acne- Primary Other acne documented in this encounter Care Teams Engine Builder Relationship Specialty Start Date End Date Lucy Caldwell ANP [address] [place] [phone] PCP - General Family Medicine 06/28/19 documented as of this encounter
--- OUTSIDE RECORDS SUMMARY | 2025-02-14 17:42 | XMS_ITS | Clinical Summary ---
Author Organization [facility] Address [address] [place] [phone] Phone Care Team Providers Care Erp Project Manager Name Role Phone Karie Lozano DO Primary [...] VACCINE (#1) 2024 1, 12/07/2007 COVID-19 VACCINE (2024-2 6 season) 2024 LIPID PANEL 06/28/2027 06/27/2022, 05/15/2021, [...] PM EDT Nonischemic cardiomyopathy COMPREHENSIVE METABOLIC PANEL (CMP) Routine 05/15/2021 5:35 PM EDT Nonischemic cardiomyopathy from Last 3 Months or Most Recently Relevant to Health Maintenance Results * (ABNORMAL) Comprehensive metabolic panel (05/15/2021 5:35 PM EDT) SODIUM 136 136 - 145 mmol/L [facility] POTASSIUM 5.0 3.4 - 5.1 mmol/L [facility] CHLORIDE 97(L) 98 - 107 mmol/L [facility] CO2 24 22 - 31 mmol/L [facility] BUN 12 6 - 23 mg/dL [facility] CREATININE 0.83 0.50 - 1.20 mg/dL [facility] GLUCOSE 84 70 - 100 mg/dL [facility] ALBUMIN 4.3 3.5 - 5.2 g/dL [facility] TOTAL PROTEIN 8.5(H) 6.4 - 8.3 g/dL [facility] CALCIUM 10.1 8.8 - 10.7 mg/dL [facility] ALKALINE PHOSPHATASE 125 35 - 130 U/L [facility] TOTAL BILIRUBIN 0.8 0.0 - 1.0 mg/dL [facility] AST 25 10 - 50 U/L [facility] ALT 20 10 - 50 U/L [facility] GLOBULIN 4.2 2.2 - 4.2 g/dL [facility] EGFR 117 >59 mL/min/1. 73m2 [facility] Comment:Estimated glomerular filtration rate calculated using the CKD-EPI refit equation. ANION GAP 15 7 - 17 mmol/L [facility] 05/15/2021 5:35 PM EDT 05/15/2021 5:49 PM EDT Angela Abreu HARVEST MANAGER LAB BLOOD BKR ORDERABLE S Final Result Performing Organization Address [facility] Co de Phone Number [facility] [address] [place] [phone] * (ABNORMAL) Lipid panel (05/15/2021 5:35 PM EDT) CHOLESTEROL 127 <200 mg/dL [facility] TRIGLYCERIDES 113 35 - 150 mg/dL [facility] HDL 33(L) 40 - 80 mg/dL [facility] CALCULATED LDL 71 50 - 129 mg/dL [facility] VLDL 23 mg/dL [facility] CARDIAC RISK RATIO 3.8 0.0 - 4.0 [facility] 05/15/2021 5:35 PM EDT 05/15/2021 5:49 PM EDT Angela Abreu HARVEST MANAGER LAB BLOOD BKR ORDERABLE S Final Result Performing Organization Address [facility] de Phone Number [facility] [address] [place] [phone] from Last 3 Months or Most Recently Relevant to Health Maintenance Insurance MEDICARE PART A & B [facility] ONE [facility]ARE MEDICARE REPLACEMENT MEDICARE PART A & B [facility] ONE [facility]ARE MEDICARE REPLACEMENT MEDICARE PART A & B ONE CARE MEDICARE REPLACEMENT [employer] [id number] MEDICARE PART A & B CARE MEDICARE REPLACEMENT [employer] [place] [id number] MEDICARE PART A & B CARE MEDICARE REPLACEMENT [employer] [facility] MEDICARE PART A & B [facility] C[facility] MEDICARE REPLACEMENT Care Teams Erp Project Manager Relationship Specialty Start Date End Date Karie Lozano DO [address] [place] [phone] PCP - General 12/02/16 Additional Source Comments The information contained in this document represents components of the legal health record. It is not the complete legal health record.[facility]
== END 2025-02-14 14:20 | disposition home or self-care (01) ==
LOC: HO.HGS 13:54
PROVIDERS: PCP Nurse Practitioner Primary Care; Visit Provider Surgery
DX: L73.2 Hidradenitis suppurativa (principal)
CPT/HCPCS: 99204

== ENCOUNTER → 2025-02-14 13:53 | Outpatient (BNVA) | payer OTHER, SELFPAY | PROVIDERS: PCP Nurse Practitioner Primary Care; Visit Provider Surgery | DX: L73.2 Hidradenitis suppurativa (principal); Z98.890 Other specified postprocedural states | CPT/HCPCS: 99202 ==